=== PATIENT | male | born 1975 | race Caucasian/White ===

== ENCOUNTER 2020-03-07 17:48 | Emergency (ER) | payer SELFPAY ==
[~2020-03-07] VITALS: Ht 175.3 cm; Wt 104.5 kg
[2020-03-07 18:53] VITALS: BP 209/94
[2020-03-07] MEDS ORDERED: CIPR500T94 PO (19:26)
[2020-03-07] MEDS ORDERED: NEOM10SO7 AD (19:26)
--- NOTE | 2020-03-07 19:29 | PHYS DOC ---
Past Medical History Past Medical History: No Pertinent History Past Surgical History: No Surgical History Smoking Status: Current Every Day Smoker Alcohol Use: Occasionally General Adult EDM: Chief Complaint: EARACHE/EAR PAIN HPI: HPI: Patient is a 44 year old male, accompanied by his significant other, who presents to the emergency department with complaints of right ear pain for the last week that has increased over the last 2 days. Patient reports the pain started after he had been [place]. He denies any decreased hearing, ringing in the ear, dizziness, headache, or fever. He denies any recent cough, shortness of breath, congestion, nausea, vomiting, diarrhea, or abdominal pain. He denies any recent ill contacts. Patient currently rates the pain a 7 out of 10 on the pain scale, he denies any alleviating or exacerbating factors, he denies any radiation of the pain. Patient reports a history of high blood pressure when he was in nursing home but states he has not taken blood pressure medication for quite some time and he does not have a primary care doctor. Review of Systems: Review of Systems: Constitutional: Denies fever or chills. [] Eyes: Denies change in visual acuity. [] HENT: Denies nasal congestion or sore throat; see HPI. [] Respiratory: Denies cough or shortness of breath. [] Cardiovascular: Denies chest pain or palpitations GI: Denies abdominal pain, nausea, vomiting, or diarrhea. [] Musculoskeletal: Denies back pain or joint pain. [] Integument: Denies rash. [] Neurologic: Denies headache, focal weakness or sensory changes. [] Psychiatric: Denies depression or anxiety. [] Heart Score: Risk Factors: Risk Factors: DM, Current or recent (<one month) smoker, HTN, HLP, family history of CAD, obesity. Risk Scores: Score 0 - 3: 2.5% MACE over next 6 weeks - Discharge Home Score 4 - 6: 20.3% MACE over next 6 weeks - Admit for Clinical Observation Score 7 - 10: 72.7% MACE over next 6 weeks - Early Invasive Strategies Allergies: Allergies: Allergies Coded Allergies Type Severity Reaction Last Updated Verified No Known Drug Allergies 03/07/20 No Physical Exam: PE: Constitutional: Well developed, well nourished, no acute distress, non-toxic appearance, obese. [] HENT: Normocephalic, atraumatic, nose normal, left external ear normal, posterior pharynx normal; left TM normal, right TM appears to be bulging with purulent fluid no drainage, there is edema and erythema of the external canal and the pinna consistent with otitis externa, no visible abscess, drainage, or bleeding. Eyes: PERRLA, EOMI, conjunctiva normal, no discharge. [] Neck: Normal range of motion, no stridor. [] Cardiovascular:Heart rate regular rhythm Lungs & Thorax: Respirations even and unlabored, no retractions, no respiratory distress Skin: Warm, dry Extremities: No cyanosis, ROM intact, no edema. [] Neurologic: Alert and oriented X 3, no focal deficits noted. [] Psychologic: Affect normal, judgement normal, mood normal. [] Current Patient Data: Vital Signs: Vital Signs Date Time Temp Pulse Resp B/P (MAP) Pulse Ox O2 Delivery O2 Flow Rate FiO2 03/07/20 18:53 88 209/94 (132) 03/07/20 18:11 98.0 20 98 Room Air 98.0 EKG: EKG: [] Radiology/Procedures: Radiology/Procedures: [] Course & Med Decision Making: Course & Med Decision Making Pertinent Labs and Imaging studies reviewed. (See chart for details) 44-year-old male presented to the emergency department with complaints of right ear pain for a week that was worse over 2 days. Physical exam is concerning for suppurative otitis media and otitis externa of the right ear. Prescriptions written for Cortisporin eardrops and ciprofloxacin. Patient was advised to not participate in contact sports or strenuous activities while steffany ing the ciprofloxacin due to risk of tendon rupture. Advised patient he can take Tylenol or ibuprofen as needed for pain. Recommend follow-up with primary care doctor in 1 to 2 days. While patient was in the emergency department he was noted to be very hypertensive patient reported a history of hypertension but stated he is not taking medication for a long time and does not have a primary care doctor. I provided the patient with a list of primary care doctors locally and recommended that he follow-up as soon as possible for treatment and management of his hypertension. Patient verbalized an understanding of home care, medications, follow-up, and return to ED instructions and was in agreement with the plan of care. [] Dragon Disclaimer: Dragon Disclaimer: This electronic medical record was generated, in whole or in part, using a voice recognition dictation system. Departure Departure Impression: Primary Impression: Otitis externa of right ear Qualified Codes: H60.311 - Diffuse otitis externa, right ear Additional Impressions: Otitis media of right ear Qualified Codes: H66.001 - Acute suppurative otitis media without spontaneous rupture of ear drum, right ear Hypertension Qualified Codes: I10 - Essential (primary) hypertension Disposition: HOME, SELF-CARE Condition: STABLE Referrals: NO PCP (PCP) Patient Instructions: Hypertension, [id number], Otitis Externa, [id number] Additional Instructions: Fill prescriptions and use as directed. Do not participate in contact sports or strenuous activities while taking ciprofloxacin, there is an increased risk of tendon rupture with this medication. Follow up with your primary care doctor in 1-2 days to have your ear rechecked and for management of your blood pressure. Tylenol or ibuprofen as needed for pain. Return to the ER if symptoms worsen. Scripts Ciprofloxacin Hcl (CIPRO) 500 Mg Tablet 1 TAB PO BID for 7 Days, #14 TAB 0 Refills Prov: ERROL RUBALCAVA APRN 03/07/20 Neomycin/Polymyxin B Sulf/Hc ([id number]-[id number]-SA EAR SOLN) 10 Ml Solution 4 DROP AD QID, #10 ML 0 Refills Prov: ERROL RUBALCAVA APRN 03/07/20 Justicifation of Admission Dx: Justifications for Admission: Justification of Admission Dx: N/A ERROL RUBALCAVA APRN Mar 07, 2020 19:29
== END 2020-03-07 19:36 | disposition home or self-care (01) ==
LOC: ER 17:48
DX: H66.001 Acute suppurative otitis media without spontaneous rupture of ear drum, right ear (principal); I10 Essential (primary) hypertension; F17.200 Nicotine dependence, unspecified, uncomplicated
CPT/HCPCS: 99283

== ENCOUNTER 2021-05-04 16:27 | Inpatient (IN) | payer SELFPAY ==
[~2021-05-04] VITALS: Ht 177.8 cm; Wt 121.8 kg
[~2021-05-04 16:27] MED LIST: CIPR500T94 PO; NEOM10SO7 AD
[2021-05-04 18:33] LABS: BASO # 0.1 x10^3/uL (0.0-0.2); BASO % 1 % (0-3); EOS # 0.1 x10^3/uL (0.0-0.7); EOS % 0 % (0-3); HEMATOCRIT 39.5 % (39.0-53.0); LYMPH % 6 % (24-48); MEAN CORPUSCULAR VOLUME 79 fL (79-100); MONO # 1.1 x10^3/uL (0.0-1.1); MONO % 6 % (0-9); NEUT # 15.2 x10^3/uL (1.8-7.7); NEUT % 87 % (31-73); PLATELET COUNT 213 x10^3/uL (140-400); RED BLOOD COUNT 5.02 x10^6/uL (4.30-5.70); RED CELL DISTRIBUTION WIDTH 15.7 % (11.5-14.5); WHITE BLOOD COUNT 17.4 x10^3/uL (4.0-11.0)
[2021-05-04 18:34] LABS: BILIRUBIN,URINE NEGATIVE (NEG); CLARITY,URINE CLEAR; COLOR,URINE YELLOW; NITRITE,URINE NEGATIVE (NEG); PROTEIN,URINE 100 mg/dL (NEG-TRACE); UROBILINOGEN,URINE 0.2 mg/dL (0.2 mg/dL)
[2021-05-04 18:40] LABS: BARBITURATES NEG (NEG); BENZODIAZEPINES NEG (NEG); CANNABINOIDS NEG (NEG); COCAINE NEG (NEG); METHADONE NEG (NEG); OPIATES NEG (NEG); PHENCYCLIDINE NEG (NEG)
[2021-05-04 18:41] LABS: BACTERIA,URINE FEW /HPF (0-FEW)
[2021-05-04 18:50] LABS: AMPHETAMINE/METHAMPHETAMINE NEG (NEG)
[2021-05-04 19:03] LABS: MEAN CORPUSCULAR HGB CONC 35 g/dL (31-37)
[2021-05-04 19:04] LABS: MEAN CORPUSCULAR HEMOGLOBIN 27 pg (25-35)
--- NOTE | 2021-05-04 19:04 | RAD ---
CT HEAD/BRAIN WO Date: 05/04/2021 6:29 PM Clinical Indication: Reason: dizziness / Spl. Instructions: / History: Comparison: None. Technique: 5 mm axial tomographic images were obtained of the head without contrast. These were view ed on brain and bone windows. One or more of the following dose reduction techniques were utilized: A utomated exposure control (AEC), Adjustment of mA and/or kV according to patient size, Use of iterati ve reconstruction technique such as ASiR, CT scan done according to ALARA and image gently/image carter ly Findings: The brain parenchyma is normal in attenuation. No intra- or extra-axial mass or fluid collection. No acute hemorrhage. The ventricles are normal in size, shape, and morphology. The jeffery-white matter moose ction is normal. The subarachnoid cisterns are patent. Mild paranasal sinus mucosal thickening. The visualized portions of the orbits and globes are normal . The mastoid air cells are clear. The fire fighter topogram shows no lytic lesion or fracture. Impression: No acute intracranial process. Electronically signed by: Ever Talbot MD (05/04/2021 7:02 PM) [facility]
[2021-05-04 19:06] LABS: HEMOGLOBIN 13.6 g/dL (13.0-17.5)
[2021-05-04] MEDS ORDERED: fentaNYL PF VIAL 100 MCG/2 ML VIAL IVP ONE ×3 (19:30→22:00)
[2021-05-04] MEDS ORDERED: hydrALAZINE 20 MG/ML VIAL. IVP ONE (19:30)
[2021-05-04] MEDS ORDERED: ONDANSETRON PF 4 MG/2 ML VIAL. IVP ONE (19:30)
--- NOTE | 2021-05-04 19:31 | PHYS DOC ---
Past Medical History Past Medical History: No Pertinent History Additional Past Medical Histor: patient states he has no PCP and doesn't know what his health problems are (FLORIN,HIRA [address]) Past Surgical History: No Surgical History (HIRA CATHERINE [address]) Smoking Status: Never Smoker Alcohol Use: Occasionally (HIRA CATHERINE [address]) General Adult EDM: Chief Complaint: DIZZY/LIGHT HEADED HPI: HPI: Patient is a 45 year old male who presents with 24 hours of excessive thirst, soa, dizziness, epigastric pain and has drank 3 gallons of water per the the patient. Rates his pain a 7/10 and sharp. He states he is having nausea. Denies having a PCP and states he does not know his past medical history because he does not go to the doctor. He is tachycardic, tachypneic. (HIRA CATHERINE [address]) Review of Systems: Review of Systems: Constitutional: Denies fever or chills. [] Eyes: Denies change in visual acuity. [] HENT: Denies nasal congestion or sore throat. [] Respiratory: Denies cough or +shortness of breath. [] Cardiovascular: Denies chest pain or edema. [] GI: + abdominal pain, +nausea, denies vomiting, bloody stools or diarrhea. [] : Denies dysuria. + Excessive thirst [] Musculoskeletal: Denies back pain or joint pain. [] Integument: Denies rash. [] Neurologic: Denies headache, focal weakness or sensory changes. + Dizziness [] Endocrine: Denies polyuria or polydipsia. [] Lymphatic: Denies swollen glands. [] Psychiatric: Denies depression or anxiety. [] (HIRA CATHERINE M [address]) Heart Score: C/O Chest Pain: No [facility] Allergies: Allergies: Allergies Coded Allergies Type Severity Reaction Last Updated Verified No Known Drug Allergies 03/07/20 No (HIRA CATHERINE [address]) Physical Exam: PE: Constitutional: Well developed, well nourished, no acute distress, non-toxic appearance. [] HENT: Normocephalic, atraumatic, bilateral external ears normal, oropharynx moist, no oral exudates, nose normal. [] Eyes: PERRLA, EOMI, conjunctiva normal, no discharge. [] Neck: Normal range of motion, no tenderness, supple, no stridor. [] Cardiovascular:Heart rate regular tachycardia rhythm, no murmur [] Lungs & Thorax: Bilateral breath sounds clear to auscultation [] Abdomen: Bowel sounds normal, soft, epigastric tenderness, no masses, no pulsatile masses. [] Skin: Warm, dry, no erythema, no rash. [] Back: No tenderness, no CVA tenderness. [] Extremities: No tenderness, no cyanosis, no clubbing, ROM intact, no edema. [] Neurologic: Alert and oriented X 3, normal motor function, normal sensory function, no focal deficits noted. [] Psychologic: Affect normal, judgement normal, mood normal. [] (HIRA CATHERINE APRN) Current Patient Data: Labs: Laboratory Tests Test 05/04/21 18:04 05/04/21 18:14 Urine Collection Type Unknown Urine Color Yellow Urine Clarity Clear Urine pH 6.0 (<5.0-8.0) Urine Specific [place] >=1.030 (1.000-1.030) Urine Protein 100 mg/dL (NEG-TRACE) Urine Glucose (UA) >=1000 mg/dL (NEG) Urine Ketones (Stick) Negative mg/dL (NEG) Urine Blood Trace (NEG) Urine Nitrite Negative (NEG) Urine Bilirubin Negative (NEG) Urine Urobilinogen Dipstick 0.2 mg/dL (0.2 mg/dL) Urine Leukocyte Esterase Negative (NEG) Urine RBC 3-5 /HPF (0-2) Urine WBC 1-4 /HPF (0-4) Urine Squamous Epithelial Cells Occ /LPF Urine Bacteria Few /HPF (0-FEW) Urine Opiates Screen Neg (NEG) Urine Methadone Screen Neg (NEG) Urine Barbiturates Neg (NEG) Urine Phencyclidine Screen Neg (NEG) Urine Amphetamine/Methamphetamine Neg (NEG) Urine Benzodiazepines Screen Neg (NEG) Urine Cocaine Screen Neg (NEG) Urine Cannabinoids Screen Neg (NEG) Urine Ethyl Alcohol Neg (NEG) White Blood Count 17.4 x10^3/uL (4.0-11.0) H Red Blood Count 5.02 x10^6/uL (4.30-5.70) Hemoglobin 13.6 g/dL (13.0-17.5) Hematocrit 39.5 % (39.0-53.0) Mean Corpuscular Volume 79 fL (79-100) Mean Corpuscular Hemoglobin 27 pg (25-35) Mean Corpuscular Hemoglobin Concent 35 g/dL (31-37) Red Cell Distribution Width 15.7 % (11.5-14.5) H Platelet Count 213 x10^3/uL (140-400) Neutrophils (%) (Auto) 87 % (31-73) H Lymphocytes (%) (Auto) 6 % (24-48) L Monocytes (%) (Auto) 6 % (0-9) Eosinophils (%) (Auto) 0 % (0-3) Basophils (%) (Auto) 1 % (0-3) Neutrophils # (Auto) 15.2 x10^3/uL (1.8-7.7) H Lymphocytes # (Auto) 1.0 x10^3/uL (1.0-4.8) Monocytes # (Auto) 1.1 x10^3/uL (0.0-1.1) Eosinophils # (Auto) 0.1 x10^3/uL (0.0-0.7) Basophils # (Auto) 0.1 x10^3/uL (0.0-0.2) Troponin I Quantitative 0.042 ng/mL (0.000-0.055) CS-Tun-L-Type Natriuretic Peptide 391 pg/mL (0-124) H Lipase 786 U/L (73-393) H Laboratory Tests 05/04/21 18:14 Vital Signs: Vital Signs Date Time Temp Pulse Resp B/P (MAP) Pulse Ox O2 Delivery O2 Flow Rate FiO2 05/04/21 17:50 118 26 234/113 (153) 94 Room Air 05/04/21 17:42 98.8 98.8 (HIRA CATHERINE APRN) EKG: EK and read by Dr. Ryder as sinus tachycardia and no STEMI (HIRA CATHERINE APRN) Radiology/Procedures: Radiology/Procedures: [] Impression: [facility] [address] [place], [place] [id number] IMAGING REPORT Signed PATIENT: GREG DUNALP ACCOUNT: [id number] : 1975 LOCATION: ER AGE: 45 SEX: M EXAM STATUS: REG ER ORD. PHYSICIAN: HIRA CATHERINE APRN REASON: dizziness PROCEDURE: CT HEAD WO CONTRAST CT HEAD/BRAIN WO Date: 05/04/2021 6:29 PM Clinical Indication: Reason: dizziness / Spl. Instructions: / History: Comparison: None. Technique: 5 mm axial tomographic images were obtained of the head without contrast. These were viewed on brain and bone windows. One or more of the following dose reduction techniques were utilized: Automated exposure control (AEC), Adjustment of mA and/or kV according to patient size, Use of iterative reconstruction technique such as ASiR, CT scan done according to ALARA and image gently/image wisely Findings: The brain parenchyma is normal in attenuation. No intra- or extra-axial mass or fluid collection. No acute hemorrhage. The ventricles are normal in size, shape, and morphology. The jeffery-white matter junction is normal. The subarachnoid cisterns are patent. Mild paranasal sinus mucosal thickening. The visualized portions of the orbits and globes are normal. The mastoid air cells are clear. The shift engineer topogram shows no lytic lesion or fracture. Impression: No acute intracranial process. Electronically signed by: Neha Cisneros MD (05/04/2021 7:02 PM) [facility] DICTATED and SIGNED BY: NEHA CISNEROS MD DATE: 05/04/21 [id number] [facility] [address] [place] [address] IMAGING REPORT Signed PATIENT: GREG DUNLAP ACCOUNT: [id number] : 1975 LOCATION: ER AGE: 45 SEX: M EXAM STATUS: REG ER ORD. PHYSICIAN: HIRA CATHERINE APRN REASON: dizziness PROCEDURE: PORTABLE CHEST 1V XR CHEST 1V INDICATION: dizziness / Spl. Instructions: / History: . COMPARISON STUDY: None. FINDINGS: Lungs: Normal lung volume. No pulmonary mass or consolidation. The tracheobronchial tree and hilar structures are normal. Pleura: No pleural effusion or pneumothorax. Heart and Mediastinum: The cardiomediastinal silhouette is normal. The great vessels of the thorax are normal. IMPRESSION: No acute cardiopulmonary process. Electronically signed by: Neha Cisneros MD (05/04/2021 7:55 PM) [facility] DICTATED and SIGNED BY: NEHA CISNEROS MD DATE: 05/04/21 [id number] [facility] [address] [place] [address] IMAGING REPORT Signed PATIENT: GREG DUNLAP ACCOUNT: [id number] : 1975 LOCATION: ER AGE: 45 SEX: M EXAM STATUS: REG ER ORD. PHYSICIAN: HIRA CATHERINE APRN REASON: SOA, TACHYCARDIC PROCEDURE: CT ANGIO CHEST W ABD PEL W/ CT angiography chest with contrast. CT abdomen and pelvis with contrast PQRS statement: CT scans at this facility use dose reduction including either au tomated exposure control, iterative reconstructions, and /or weight based radiation dosing via mA and kV modification when appropriate to reduce radiation dose to as low as reasonably achievable. Contrast: 100 mL Omnipaque 350 intravenous contrast with 3-D MIP reconstructions of the arteries acquired. HISTORY: Shortness of breath, epigastric abdominal pain, tachycardia. Chest findings: No thoracic aortic aneurysm or dissection. Ascending aorta diameter 2.9 cm. Heart size normal. Esophagus unremarkable. No pulmonary artery emboli. Left ventricular myocardium is subjectively prominent in size the lateral wall proximal segment thickness is 2.5 cm at the mid segment and the septal wall thickness is approximately 2.5 cm at the mid segment may indicate hypertrophic are mildly. No adenopathy in the chest with subcentimeter mediastinal and hilar lymph nodes. There are calcified granulomas within the chest.Trachea and bronchi are unremarkable. No pulmonary opacities. No pleural effusions. Bones are unremarkable. 4 mm left upper lobe solid nodule image 52. Abdomen findings: There is diffuse hypodensity of the liver typical steatosis, there is a geographic nonmasslike area hyperdensity of the left hepatic lobe adjacent of the glenroy hepatis typical of fatty sparing. There is a smaller area of fatty sparing gallbladder fossa. Edema of the pancreas as well as mild peripancreatic edema consistent with acute pancreatitis. No pseudocyst evident. Patent contrast enhancement of the portal vein and splenic vein and mesenteric veins. Kidneys, adrenals, spleen and gallbladder are unremarkable. Appendix is negative. No obstruction or inflammatory changes in GI tract. No abdominal fluid or adenopathy. Lower lumbar disc disease. Pelvis findings: Bladder, prostate, rectum and bones are unremarkable. IMPRESSION: 1. Acute pancreatitis. 2. No acute process in the chest. No pulmonary artery emboli. No thoracic aortic aneurysm or dissection. 3. Hypodense liver likely due to steatosis with areas of fatty sparing as described above. 4. Appendix is negative. 5. Possible left ventricular myocardial hypertrophy raising the possibility of hypertrophic cardiomyopathy or muscular hypertrophy from long-standing hypertension. This could be further assessed with echocardiography. 6. 4 mm left upper lobe solid pulmonary nodule. Per Fleischner guidelines if the patient has risk factors for malignancy optional CT follow-up in 12 months could be considered, otherwise no follow-up is necessary. Electronically signed by: Wilber Smiley MD (05/04/2021 9:21 PM) [facility] [place] DICTATED and SIGNED BY: WILBER SMILEY MD DATE: 05/04/21 [id number] (HIRA CATHERINE APRN) Course & Med Decision Making: Course & Med Decision Making Pertinent Labs and Imaging studies reviewed. (See chart for details) COVID-19 CRITERIA: The patient was evaluated during the global COVID-19 pandemic, and that diagnosis was suspected/considered upon their initial presentation. Their evaluation, treatment and testing was consistent with current guidelines for patients who present with complaints or symptoms that may be related to COVID-19. See HPI. Alert and oriented x4. Ambulatory steady gait. Speaks in full clear sentences. Skin pink warm and dry. No extremity edema. Epigastric tenderness with palpation. Abdomen otherwise soft. Patient is tachycardic. He is also hypertensive. Patient is given hydralazine in the ED. He is given IV fluids. Insulin drip was started. Admitted to the hospitalist. [] (HIRA CATHERINE APRN) Course & Med Decision Making Care and Treatment plan independently provided by MEDICAL RECORD CONSULTANT. I was available for consult. Patients chart reviewed. (GREG RYDER DO) Sunil Disclaimer: Sunil Disclaimer: This electronic medical record was generated, in whole or in part, using a voice recognition dictation system. (HIRA CATHERINE APRN) COVID-19 Patient Risks: Age 65 or older: No Sign of co-morbidity: Yes Exp to person + for COVID: No Exp to PUI: No Travel from affected area: No Lower respiratory symptoms: Yes Fever: No Other: Yes (TACHYCARDIA, NAUSEA) (HIRA CATHERINE APRN) PPE Use: Full PPE with N95 mask or PAPR: Yes (HIRA CATHERINE APRN) Departure Departure Impression: Primary Impression: Hyperglycemia Additional Impressions: Pancreatitis Qualified Codes: K85.90 - Acute pancreatitis without necrosis or infection, unspecified Hypertension Qualified Codes: I10 - Essential (primary) hypertension Disposition: ADMITTED INPATIENT Admitting Physician: DARREL (HIRA CATHERINE APRN) Condition: STABLE Referrals: NO PCP (PCP) Scripts Hum Insulin Nph/Reg Insulin Hm (HUMULIN 70-30 VIAL) 100 Unit/1 Ml Vial 20 UNIT SQ BID for diabetes for 30 Days, #3 EACH Prov: GINO SANDERS MD 05/06/21 Losartan Potassium (COZAAR ) 50 Mg Tablet 50 MG PO DAILY for hypertension with diabetes for 30 Days, #30 TAB Prov: GINO SANDERS MD 05/06/21 Fenofibrate,Micronized (FENOFIBRATE) 134 Mg Capsule 160 MG PO DAILY for daily for 30 Days, #30 CAP Prov: GINO SANDERS MD 05/06/21 HIRA CATHERINE APRN May 04, 2021 19:31 GREG RYDER DO May 07, 2021 18:22
--- NOTE | 2021-05-04 19:58 | RAD ---
XR CHEST 1V INDICATION: dizziness / Spl. Instructions: / History: . COMPARISON STUDY: None. FINDINGS: Lungs: Normal lung volume. No pulmonary mass or consolidation. The tracheobronchial tree and hilar st ructures are normal. Pleura: No pleural effusion or pneumothorax. Heart and Mediastinum: The cardiomediastinal silhouette is normal. The great vessels of the thorax ar e normal. IMPRESSION: No acute cardiopulmonary process. Electronically signed by: Ever Talbot MD (05/04/2021 7:55 PM) [facility]
[2021-05-04 20:08] LABS: ALBUMIN 3.1 g/dL (3.4-5.0); ALBUMIN/GLOBULIN RATIO 0.8 (1.0-1.7); CALCIUM 9.5 mg/dL (8.5-10.1); CREATININE 1.2 mg/dL (0.7-1.3); GFR 65.8; MAGNESIUM 2.1 mg/dL (1.8-2.4); POTASSIUM 4.7 mmol/L (3.5-5.1); TOTAL BILIRUBIN 0.4 mg/dL (0.2-1.0); TOTAL PROTEIN 7.1 g/dL (6.4-8.2)
[2021-05-04] MEDS ORDERED: IOHEXOL 350 MG/ML 100 ML VIAL. IV ONE (20:15)
[2021-05-04] MEDS ORDERED: INSULIN REGULAR VIAL 100 UNIT in IV NORMAL SALINE 100ML 100 ML IV PRN (20:30)
[2021-05-04] MEDS ORDERED: CONTRAST GIVEN. MC PRN (20:30)
[2021-05-04] MEDS ORDERED: IV NORMAL SALINE 1000ML BAG 1,000 ML IV SCH (20:30)
[2021-05-04] MEDS ORDERED: ONDANSETRON PF 4 MG/2 ML VIAL. IVP PRN (20:30)
[2021-05-04] MEDS ORDERED: POTASSIUM CHLORIDE 10MEQ 100 ML IV PRN ×3 (20:30)
--- NOTE | 2021-05-04 21:23 | RAD ---
CT angiography chest with contrast. CT abdomen and pelvis with contrast PQRS statement: CT scans at this facility use dose reduction including either automated exposure cont rol, iterative reconstructions, and /or weight based radiation dosing via mA and kV modification when appropriate to reduce radiation dose to as low as reasonably achievable. Contrast: 100 mL Omnipaque 350 intravenous contrast with 3-D MIP reconstructions of the arteries acqu ired. HISTORY: Shortness of breath, epigastric abdominal pain, tachycardia. Chest findings: No thoracic aortic aneurysm or dissection. Ascending aorta diameter 2.9 cm. Heart siz e normal. Esophagus unremarkable. No pulmonary artery emboli. Left ventricular myocardium is subjecti vely prominent in size the lateral wall proximal segment thickness is 2.5 cm at the mid segment and t he septal wall thickness is approximately 2.5 cm at the mid segment may indicate hypertrophic are mil dly. No adenopathy in the chest with subcentimeter mediastinal and hilar lymph nodes. There are calci fied granulomas within the chest.Trachea and bronchi are unremarkable. No pulmonary opacities. No ple ural effusions. Bones are unremarkable. 4 mm left upper lobe solid nodule image 52. Abdomen findings: There is diffuse hypodensity of the liver typical steatosis, there is a geographic nonmasslike area hyperdensity of the left hepatic lobe adjacent of the glenroy hepatis typical of fatty sparing. There is a smaller area of fatty sparing gallbladder fossa. Edema of the pancreas as well a s mild peripancreatic edema consistent with acute pancreatitis. No pseudocyst evident. Patent contras t enhancement of the portal vein and splenic vein and mesenteric veins. Kidneys, adrenals, spleen and gallbladder are unremarkable. Appendix is negative. No obstruction or inflammatory changes in GI tra ct. No abdominal fluid or adenopathy. Lower lumbar disc disease. Pelvis findings: Bladder, prostate, rectum and bones are unremarkable. IMPRESSION: 1. Acute pancreatitis. 2. No acute process in the chest. No pulmonary artery emboli. No thoracic aortic aneurysm or dissecti on. 3. Hypodense liver likely due to steatosis with areas of fatty sparing as described above. 4. Appendix is negative. 5. Possible left ventricular myocardial hypertrophy raising the possibility of hypertrophic cardiomyo catrina or muscular hypertrophy from long-standing hypertension. This could be further assessed with ec hocardiography. 6. 4 mm left upper lobe solid pulmonary nodule. Per Fleischner guidelines if the patient has risk fac tors for malignancy optional CT follow-up in 12 months could be considered, otherwise no follow-up is necessary. Electronically signed by: Jaspreet Edge MD (05/04/2021 9:21 PM) [facility]
[2021-05-04] MEDS: IV NORMAL SALINE 1000ML BAG 1,000 ML IV SCH (21:38)
[2021-05-04] MEDS ORDERED: LABETALOL 20 MG/4 ML DISP.SYRIN. IVP ONE (22:00)
[2021-05-04 23:13] LABS: BASE EXCESS ABG -1 mmol/L (-3-3); FIO2 ABG 2LNC; HCO3 ABG 22 mmol/L (21-28); PCO2 ABG 31 mmHg (35-46); PO2 ABG 74 mmHg (75-108); SAT O2 ABG 94 % (92-99)
[2021-05-04 23:40] VITALS: BP 174/94
[2021-05-05 03:00] VITALS: BP 171/110
[2021-05-05] MEDS: IV NORMAL SALINE 1000ML BAG 1,000 ML IV SCH ×3 (03:10→16:30)
--- NOTE | 2021-05-05 06:10 | EKG ---
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
[2021-05-05 07:00] VITALS: BP 165/91
[2021-05-05 08:38] LABS: CREATININE 0.9 mg/dL (0.7-1.3); GFR 91.7
[2021-05-05 08:45] LABS: CALCIUM 8.2 mg/dL (8.5-10.1)
[2021-05-05] MEDS ORDERED: DEXTROSE 50% 25 GM / 50ML DISP.SYRIN. IV PRN (09:45)
[2021-05-05] MEDS ORDERED: POTASSIUM CHLORIDE 20 MEQ TABLET.ER. PO ONE (09:45)
[2021-05-05 11:00] VITALS: BP 145/88
--- NOTE | 2021-05-05 11:07 | PDOC ---
GENERAL General: History and physical [id number] VITAL SIGNS Vital Signs/I&O: Vital Signs Date Time Temp Pulse Resp B/P (MAP) Pulse Ox O2 Delivery O2 Flow Rate FiO2 05/05/21 07:00 98.0 101 18 165/91 (115) 94 Room Air 98.0 I & O 05/04/21 05/04/21 05/05/21 15:00 23:00 07:00 Intake Total 223 ml 240 ml Output Total 650 ml Balance 223 ml -410 ml ALLERGIES Allergies: Allergies Coded Allergies Type Severity Reaction Last Updated Verified No Known Drug Allergies 03/07/20 No MEDS Medications: Current Medications Medications (Trade) Dose Ordered Sig/Aissatou Route PRN Reason Start Time Stop Time Status Last Admin Dose Admin Hydralazine HCl (Apresoline Inj) 10 mg 1X ONCE IVP 05/04/21 19:30 05/04/21 19:31 DC 05/04/21 19:55 Ondansetron HCl (Zofran) 4 mg 1X ONCE IVP 05/04/21 19:30 05/04/21 19:32 DC 05/04/21 19:52 Fentanyl Citrate (Fentanyl 2ml Vial) 50 mcg 1X ONCE IVP 05/04/21 19:30 05/04/21 19:32 DC 05/04/21 19:54 Sodium Chloride 1,000 ml @ 1,000 mls/hr Q1H IV 05/04/21 20:30 05/04/21 21:29 DC 05/04/21 21:37 Insulin Human Regular 100 unit/ Sodium Chloride 101 ml @ 0 mls/hr CONT PRN PRN IV PER PROTOCOL 05/04/21 20:30 05/05/21 09:34 DC 05/04/21 21:46 Potassium Chloride/Water 100 ml @ 100 mls/hr PRN Q1HR PRN IV SEE COMMENTS 05/04/21 20:30 05/04/21 22:36 Sodium Chloride 1,000 ml @ 150 mls/hr Q6H40M IV 05/04/21 20:30 05/05/21 20:29 05/05/21 03:10 Labetalol HCl (Normodyne Iv Push) 20 mg 1X ONCE IVP 05/04/21 22:00 05/04/21 22:02 DC 05/04/21 22:31 LAB Lab: Laboratory Tests Test 05/04/21 18:04 05/04/21 18:14 05/04/21 18:44 05/04/21 19:38 Urine Collection Type Unknown Urine Color Yellow Urine Clarity Clear Urine pH 6.0 (<5.0-8.0) Urine Specific Elim >=1.030 (1.000-1.030) Urine Protein 100 mg/dL (NEG-TRACE) Urine Glucose (UA) >=1000 mg/dL (NEG) Urine Ketones (Stick) Negative mg/dL (NEG) Urine Blood Trace (NEG) Urine Nitrite Negative (NEG) Urine Bilirubin Negative (NEG) Urine Urobilinogen Dipstick 0.2 mg/dL (0.2 mg/dL) Urine Leukocyte Esterase Negative (NEG) Urine RBC 3-5 /HPF (0-2) Urine WBC 1-4 /HPF (0-4) Urine Squamous Epithelial Cells Occ /LPF Urine Bacteria Few /HPF (0-FEW) Urine Opiates Screen Neg (NEG) Urine Methadone Screen Neg (NEG) Urine Barbiturates Neg (NEG) Urine Phencyclidine Screen Neg (NEG) Urine Amphetamine/Methamphetamine Neg (NEG) Urine Benzodiazepines Screen Neg (NEG) Urine Cocaine Screen Neg (NEG) Urine Cannabinoids Screen Neg (NEG) Urine Ethyl Alcohol Neg (NEG) White Blood Count 17.4 x10^3/uL (4.0-11.0) H Red Blood Count 5.02 x10^6/uL (4.30-5.70) Hemoglobin 13.6 g/dL (13.0-17.5) Hematocrit 39.5 % (39.0-53.0) Mean Corpuscular Volume 79 fL (79-100) Mean Corpuscular Hemoglobin 27 pg (25-35) Mean Corpuscular Hemoglobin Concent 35 g/dL (31-37) Red Cell Distribution Width 15.7 % (11.5-14.5) H Platelet Count 213 x10^3/uL (140-400) Neutrophils (%) (Auto) 87 % (31-73) H Lymphocytes (%) (Auto) 6 % (24-48) L Monocytes (%) (Auto) 6 % (0-9) Eosinophils (%) (Auto) 0 % (0-3) Basophils (%) (Auto) 1 % (0-3) Neutrophils # (Auto) 15.2 x10^3/uL (1.8-7.7) H Lymphocytes # (Auto) 1.0 x10^3/uL (1.0-4.8) Monocytes # (Auto) 1.1 x10^3/uL (0.0-1.1) Eosinophils # (Auto) 0.1 x10^3/uL (0.0-0.7) Basophils # (Auto) 0.1 x10^3/uL (0.0-0.2) Sodium Level 124 mmol/L (136-145) L Potassium Level 4.7 mmol/L (3.5-5.1) Chloride Level 88 mmol/L (98-107) L Carbon Dioxide Level 22 mmol/L (21-32) Anion Gap 14 (6-14) Blood Urea Nitrogen 15 mg/dL (8-26) Creatinine 1.2 mg/dL (0.7-1.3) Estimated GFR (Cockcroft-Gault) 65.8 BUN/Creatinine Ratio 13 (6-20) Glucose Level 707 mg/dL (70-99) *H Calcium Level 9.5 mg/dL (8.5-10.1) Magnesium Level 2.1 mg/dL (1.8-2.4) Total Bilirubin 0.4 mg/dL (0.2-1.0) Aspartate Amino Transferase (AST) 23 U/L (15-37) Alanine Aminotransferase (ALT) 54 U/L (16-63) Alkaline Phosphatase 180 U/L (46-116) H Troponin I Quantitative 0.042 ng/mL (0.000-0.055) KJ-Fie-S-Type Natriuretic Peptide 391 pg/mL (0-124) H Total Protein 7.1 g/dL (6.4-8.2) Albumin 3.1 g/dL (3.4-5.0) L Albumin/Globulin Ratio 0.8 (1.0-1.7) L Lipase 786 U/L (73-393) H Ethyl Alcohol Level < 10 mg/dL (0-10) Acetone Level Neg (NEG) Phosphorus Level 4.4 mg/dL (2.6-4.7) SARS-CoV-2 RNA (CHRISTOPHER) Negative (Negative) SARS-CoV-2 Antigen (Rapid) Negative (NEGATIVE) Test 05/04/21 19:40 05/04/21 20:57 05/04/21 21:10 05/04/21 22:42 Lactic Acid Level 0.7 mmol/L (0.4-2.0) O2 Saturation 94 % (92-99) Arterial Blood pH 7.47 (7.35-7.45) H Arterial Blood pCO2 at Patient Temp 31 mmHg (35-46) L Arterial Blood pO2 at Patient Temp 74 mmHg (75-108) L Arterial Blood HCO3 22 mmol/L (21-28) Arterial Blood Base Excess -1 mmol/L (-3-3) FiO2 2lnc Glucose (Fingerstick) 435 mg/dL (70-99) H 363 mg/dL (70-99) H Test 05/04/21 23:53 05/05/21 00:46 05/05/21 01:55 05/05/21 04:01 Glucose (Fingerstick) 295 mg/dL (70-99) H 244 mg/dL (70-99) H 209 mg/dL (70-99) H 181 mg/dL (70-99) H Test 05/05/21 05:08 05/05/21 06:17 05/05/21 06:35 05/05/21 07:28 Glucose (Fingerstick) 178 mg/dL (70-99) H 178 mg/dL (70-99) H 160 mg/dL (70-99) H Sodium Level 136 mmol/L (136-145) # Potassium Level 3.0 mmol/L (3.5-5.1) #L Chloride Level 101 mmol/L (98-107) Carbon Dioxide Level 24 mmol/L (21-32) Anion Gap 11 (6-14) Blood Urea Nitrogen 11 mg/dL (8-26) Creatinine 0.9 mg/dL (0.7-1.3) Estimated GFR (Cockcroft-Gault) 91.7 Glucose Level 168 mg/dL (70-99) H Calcium Level 8.2 mg/dL (8.5-10.1) L Test 05/05/21 08:32 05/05/21 09:54 05/05/21 11:01 Glucose (Fingerstick) 176 mg/dL (70-99) H 194 mg/dL (70-99) H 144 mg/dL (70-99) H Laboratory Tests 05/04/21 18:14 Laboratory Tests 05/04/21 18:14 05/05/21 06:35 Justifications for Admission Other Justification GINO SANDERS MD May 05, 2021 11:07
[2021-05-05] MEDS ORDERED: cloNIDine HCL 0.1 MG TABLET PO PRN (11:15)
[2021-05-05] MEDS: LOSARTAN POTASSIUM 50 MG TABLET. PO SCH (11:26)
--- NOTE | 2021-05-05 11:35 | HP ---
ADMIT DATE: 05/04/2021 HISTORY OF PRESENT ILLNESS: This patient is a 45-year-old man who does not have a continuity source of primary care due to lack of medical insurance. 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 He is anticipating going back to work on 06/04. I am seeing him with his at bedside and both the patient and serve as adequate historians of this present illness. The patient tells me he has had a terrible time with the change in routine during the pandemic. He has gained almost 100 pounds in the last year and has been eating extremely poorly. He eats junk food all day long and is drinking lots of sugary beverages. His activity level has dropped off markedly. He does binge drink alcohol about every 1-2 weeks and will drink 2 or 3 liters of hard alcohol at a time. He has not had a binge alcohol episode in over 2 weeks. 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 He started noticing at that point that he was needing to drink lots and lots of beverages, but mostly was hydrating with Maco-Aid and soda. His symptoms escalated and 2 days ago, he developed severe epigastric and mid abdominal pain with lightheadedness and actually had a brief unwitnessed syncopal event. He was admitted last night with severe hyperglycemia and acute pancreatitis. He tells me he is feeling a little bit better this morning with intravenous hydration and pain control. He is extremely motivated to do well and get back to work. At this point, he is having more pain as his ER narcotic order has . He denies any fever, chills, cough, congestion, palpitations. He has had more loose stools. He has had significant polyuria over the last few weeks. All other systems reviewed and negative. PAST MEDICAL HISTORY: Fairly unremarkable. In fact, even when the patient had health insurance, he did not follow regularly with primary care given his overall good health. The patient has been fully vaccinated for coronavirus, finished his Pfizer vaccination in 12/2020. His is also vaccinated. Binge drinking for many years. MEDICATIONS: The patient takes no chronic medications. SOCIAL HISTORY: The patient is . He and his live independently in their own home. He is a [employer] worker, has been laid off for the last year due to the pandemic. He does not take any tobacco or illicit drugs. He has been binge drank the alcohol for many years, usually in a social setting: The patient is a full code. FAMILY HISTORY: Reviewed in full and noncontributory to the present illness. PHYSICAL EXAMINATION: VITAL SIGNS: Reviewed since admission and are notable for that the patient has had a T-max of 99.4, blood pressure has been elevated in the 150s to 170s/90s, heart rate is in the 90s-100s. He is breathing comfortably and saturating normally on room air. GENERAL: The patient is a pleasant 45-year-old man, alert and oriented x 3, in some pain from his pancreatitis, otherwise in no acute distress. HEENT: Unremarkable for acute abnormality. NECK: Soft and supple. No adenopathy or thyromegaly noted. CHEST: Clear to auscultation. HEART: S1, S2 normal, tachycardic. No murmurs or gallops are noted. ABDOMEN: Obese, soft, nondistended. He does have tenderness in his upper abdomen. No masses or organomegaly noted. EXTREMITIES: Unremarkable for acute abnormality. LABS AND OTHER STUDIES: Admission white count is 17.4, hemoglobin is 13.6, platelet count is 213. Chemistry panel is notable for admission sodium of 124, severe hyperglycemia with a sugar level of 707, bicarbonate of 222, alkaline phosphatase is 180. BNP is 390. This morning his morning sugar is 168, potassium is 3.0. Electrolytes otherwise unremarkable. Creatinine is 0.9. Urine tox screen is negative. Urinalysis is clear other than the glucosuria. COVID PCR is negative. CT chest, abdomen and pelvis notable for acute pancreatitis. There is note made of left ventricular myocardial hypertrophy, probably secondary to longstanding hypertension, nonurgent echo was recommended. Head CT is unremarkable. ASSESSMENT AND PLAN: A 45-year-old man with acute pancreatitis and severe hyperglycemia with a new diagnosis of diabetes, admitted for care. He has done well overnight on a regular insulin infusion per protocol along with aggressive intravenous hydration. He ate breakfast this morning and felt that he tolerated that well. He does need short-term pain control. I have added oral oxycodone to use sparingly as needed for severe pain. We will keep him on a diabetic diet. We have written to stop his insulin drip and start subcutaneous insulin. The patient and his will need education on self-injection and we will plan on 70/30 [employer] brand ReliOn insulin due to cost on discharge. We will consult social work for any help with glucometer or other supplies that we may be able to give the patient on discharge. I have reassured the patient that with good careful attention to his healthy diet, quitting his binge alcohol drinking, and managing his diabetes, he should be able to successfully get back to work as planned in 1 month. He will need to set up with primary care for close monitoring. Inpatient status is most appropriate as we anticipate a length of stay of 2-3 midnights while we work this through. We will reassess in the morning. TRISTA DR: Alton TID: [id number] CATIE
[2021-05-05] MEDS: INSULIN LISPRO 300 UNITS/3 ML VIAL. SQ SCH ×2 (12:00→17:00)
[2021-05-05 15:00] VITALS: BP 136/80
[2021-05-05] MEDS: oxyCODONE IR 5 MG TABLET PO PRN (18:04)
[2021-05-05 19:00] VITALS: BP 130/75
[2021-05-05] MEDS ORDERED: INSULIN GLARGINE SYRINGE. SQ SCH (21:00)
[2021-05-05 23:00] VITALS: BP 146/74
[2021-05-06 03:00] VITALS: BP 169/86
[2021-05-06 05:25] LABS: BASO # 0.1 x10^3/uL (0.0-0.2); BASO % 1 % (0-3); EOS # 0.4 x10^3/uL (0.0-0.7); EOS % 3 % (0-3); HEMATOCRIT 34.6 % (39.0-53.0); HEMOGLOBIN 11.8 g/dL (13.0-17.5); LYMPH # 1.1 x10^3/uL (1.0-4.8); LYMPH % 9 % (24-48); MEAN CORPUSCULAR HEMOGLOBIN 27 pg (25-35); MEAN CORPUSCULAR HGB CONC 34 g/dL (31-37); MEAN CORPUSCULAR VOLUME 79 fL (79-100); MONO # 0.7 x10^3/uL (0.0-1.1); MONO % 6 % (0-9); NEUT # 10.3 x10^3/uL (1.8-7.7); NEUT % 81 % (31-73); PLATELET COUNT 126 x10^3/uL (140-400); RED CELL DISTRIBUTION WIDTH 16.1 % (11.5-14.5); WHITE BLOOD COUNT 12.7 x10^3/uL (4.0-11.0)
[2021-05-06 05:52] LABS: CHOLESTEROL 220 mg/dL (0-200); HDLC 21 mg/dL (40-60); TRIGLYCERIDES 886 mg/dL (0-150)
[2021-05-06 05:57] LABS: CHOLESTEROL/HDL RATIO 10.5
[2021-05-06 06:21] LABS: ALBUMIN 2.1 g/dL (3.4-5.0); ALBUMIN/GLOBULIN RATIO 0.6 (1.0-1.7); CALCIUM 7.1 mg/dL (8.5-10.1); CREATININE 0.7 mg/dL (0.7-1.3); GFR 122.5; POTASSIUM 3.5 mmol/L (3.5-5.1); TOTAL BILIRUBIN 0.4 mg/dL (0.2-1.0); TOTAL PROTEIN 5.5 g/dL (6.4-8.2)
[2021-05-06 07:00] VITALS: BP 148/88
[2021-05-06] MEDS: LOSARTAN POTASSIUM 50 MG TABLET. PO SCH (08:22)
[2021-05-06] MEDS: INSULIN LISPRO 300 UNITS/3 ML VIAL. SQ SCH ×2 (08:30→12:35)
[2021-05-06] MEDS: oxyCODONE IR 5 MG TABLET PO PRN (08:32)
[2021-05-06 11:00] VITALS: BP 142/92
[2021-05-06] MEDS ORDERED: LOSA-73 PO (12:59)
[2021-05-06] MEDS ORDERED: FENO134C PO (12:59)
[2021-05-06] MEDS ORDERED: HUM100VI SQ (12:59)
[2021-05-06] MEDS ORDERED: FENOFIBRATE,MICRONIZED 134 MG CAPSULE PO SCH (13:00)
--- NOTE | 2021-05-06 13:02 | DISCH ---
DISCHARGE INSTRUCTIONS Condition on Discharge Condition on Discharge: Stable Activity After Discharge Activity Instructions for Disc: Resume previous activity Diet after Discharge Diet after Discharge: Low Fat, Diabetic No Calorie Level Contacting the DR. after DC Call your doctor for: If your condition worsens GINO SANDERS MD May 06, 2021 13:02
--- NOTE | 2021-05-06 13:36 | PDOC ---
GENERAL General: Discharge summary [id number] VITAL SIGNS Vital Signs/I&O: Vital Signs Date Time Temp Pulse Resp B/P (MAP) Pulse Ox O2 Delivery O2 Flow Rate FiO2 05/06/21 11:00 98.7 91 18 142/92 (109) 97 Room Air 98.7 I & O 05/05/21 05/05/21 05/06/21 15:00 23:00 07:00 Intake Total 1080 ml Output Total 425 ml 2025 ml Balance -425 ml -945 ml ALLERGIES Allergies: Allergies Coded Allergies Type Severity Reaction Last Updated Verified No Known Drug Allergies 03/07/20 No MEDS Medications: Current Medications Medications (Trade) Dose Ordered Sig/Aissatou Route PRN Reason Start Time Stop Time Status Last Admin Dose Admin Insulin Glargine (Lantus Syringe) 10 unit QHS SQ 05/05/21 21:00 05/06/21 12:37 DC 05/05/21 21:14 LAB Lab: Laboratory Tests Test 05/05/21 14:13 05/05/21 15:17 05/05/21 16:33 05/06/21 04:00 Glucose (Fingerstick) 198 mg/dL (70-99) H 191 mg/dL (70-99) H 109 mg/dL (70-99) H Sodium Level 134 mmol/L (136-145) L Potassium Level 3.5 mmol/L (3.5-5.1) Chloride Level 100 mmol/L (98-107) Carbon Dioxide Level 23 mmol/L (21-32) Anion Gap 11 (6-14) Blood Urea Nitrogen 8 mg/dL (8-26) Creatinine 0.7 mg/dL (0.7-1.3) Estimated GFR (Cockcroft-Gault) 122.5 BUN/Creatinine Ratio 11 (6-20) Glucose Level 206 mg/dL (70-99) H Calcium Level 7.1 mg/dL (8.5-10.1) L Total Bilirubin 0.4 mg/dL (0.2-1.0) Aspartate Amino Transferase (AST) 25 U/L (15-37) Alanine Aminotransferase (ALT) 44 U/L (16-63) Alkaline Phosphatase 122 U/L (46-116) H Total Protein 5.5 g/dL (6.4-8.2) L Albumin 2.1 g/dL (3.4-5.0) L Albumin/Globulin Ratio 0.6 (1.0-1.7) L Triglycerides Level 886 mg/dL (0-150) H Cholesterol Level 220 mg/dL (0-200) H LDL Cholesterol, Calculated mg/dL (0-100) VLDL Cholesterol, Calculated mg/dL (0-40) Non-HDL Cholesterol Calculated 199 mg/dL (0-129) H HDL Cholesterol 21 mg/dL (40-60) L Cholesterol/HDL Ratio 10.5 Thyroid Stimulating Hormone (TSH) 0.569 uIU/mL (0.358-3.74) Test 05/06/21 04:30 05/06/21 07:32 05/06/21 11:20 White Blood Count 12.7 x10^3/uL (4.0-11.0) H Red Blood Count 4.40 x10^6/uL (4.30-5.70) Hemoglobin 11.8 g/dL (13.0-17.5) L Hematocrit 34.6 % (39.0-53.0) L Mean Corpuscular Volume 79 fL (79-100) Mean Corpuscular Hemoglobin 27 pg (25-35) Mean Corpuscular Hemoglobin Concent 34 g/dL (31-37) Red Cell Distribution Width 16.1 % (11.5-14.5) H Platelet Count 126 x10^3/uL (140-400) L Neutrophils (%) (Auto) 81 % (31-73) H Lymphocytes (%) (Auto) 9 % (24-48) L Monocytes (%) (Auto) 6 % (0-9) Eosinophils (%) (Auto) 3 % (0-3) Basophils (%) (Auto) 1 % (0-3) Neutrophils # (Auto) 10.3 x10^3/uL (1.8-7.7) H Lymphocytes # (Auto) 1.1 x10^3/uL (1.0-4.8) Monocytes # (Auto) 0.7 x10^3/uL (0.0-1.1) Eosinophils # (Auto) 0.4 x10^3/uL (0.0-0.7) Basophils # (Auto) 0.1 x10^3/uL (0.0-0.2) Glucose (Fingerstick) 217 mg/dL (70-99) H 338 mg/dL (70-99) H Laboratory Tests 05/06/21 04:30 Laboratory Tests 05/06/21 04:00 Justifications for Admission Other Justification GINO SANDERS MD May 06, 2021 13:36
--- NOTE | 2021-05-06 13:58 | DS ---
DATE OF DISCHARGE: 05/06/2021 HOSPITAL COURSE: This patient is a 45-year-old man who does not have a continuity source of primary care, admitted with acute pancreatitis and acute onset diabetes mellitus, perhaps present prior to the pancreatitis or due to it. The patient has done well with intravenous fluids and bowel rest and is feeling a lot better today. He finished his lunch and denies any nausea, vomiting, or change in his bowel habits. His pain is well controlled with minimal narcotics. He has been found to have significant hypertriglyceridemia. We will start fenofibrate 160 mg daily. A1c is pending on this admission and it may well be the patient's insulin needs are decreased once he has improved this pancreatitis. He is willing to be aggressive with his diabetes and will use [employer] ReliOn brand Humulin 70/30, insulin 20 units twice daily and ramp up as needed. I have written prescription for those medications along with glucometer, lancets, and test strips. The patient will test his sugars twice a day prior to administration of his insulin. He is in good spirits today. I am seeing him with mother at bedside. He is very motivated to stay well. He plans on curbing his binge eating and binge alcohol intake. He feels that he will be ready to get back to work in mid May as planned. PHYSICAL EXAMINATION: VITAL SIGNS: Today is notable for that the patient has been afebrile. Blood pressure has been in the 140s/80s, improved on the losartan. Heart rate is in the 90s-100s and regular. He is breathing comfortably and saturating normally on room air. GENERAL: He is a pleasant 45-year-old male, alert and oriented x 3, no acute distress. HEENT: Unremarkable for acute abnormality. NECK: Soft and supple. No adenopathy or thyromegaly noted. CHEST: Actually clear to auscultation. HEART: S1, S2 normal. Regular rate and rhythm. No murmurs or gallops are noted. ABDOMEN: Distended, but soft, nontender. No masses or organomegaly noted. EXTREMITIES: Physical exam is unremarkable for acute abnormality. Total time today is 30 minutes with greater than 50% in counseling and coordination of care, most of which in discussion with the patient and his family. FINAL DIAGNOSES: 1. Acute pancreatitis related to alcoholism and binge eating of high fat foods. 2. Hypertriglyceridemia. 3. Acute onset of diabetes. SAVI/MOH DR: Alton TID: [id number]
--- NOTE | 2021-05-06 15:45 | NUR ---
Discharge Note: Patient was discharged home with self care. Patients IV was discontinued without any complications per IRENE. Patient was given discharge summary/instructions, follow-ups, prescriptions and educational material. Patient was stated he did not need education on how to check his blood sugar and how to give himself some insulin, stated he was three close family members and a best friend that will teach him. RN tried to treat him and educate him but patient was eager to get out of the hospital and calling people on his cell and not paying attention to the education. Patient was given a list of providers for primary care. Patient was taken down to the main entrance accompanied by IRENE Hopkins, where patients ride was here to take him home.
[2021-05-06] MEDS ORDERED: INSULIN LISPRO 300 UNITS/3 ML VIAL. SQ SCH (17:00)
[2021-05-06] MEDS ORDERED: INSULIN GLARGINE SYRINGE. SQ SCH (21:00)
[2021-05-07 22:22] LABS: HEMOGLOBIN A1C 11.6 % (4.8-5.6)
== END 2021-05-06 16:00 | disposition home or self-care (01) | DRG 637 ==
LOC: ER 16:27 → 5 NORTH 22:18 → ED HOLD 22:18 → 5 NORTH 23:06
PROVIDERS: ADMIT Family Medicine; ATTEND Family Medicine
DX: E11.65 Type 2 diabetes mellitus with hyperglycemia (principal); K85.20 Alcohol induced acute pancreatitis without necrosis or infection; E78.1 Pure hyperglyceridemia; F10.20 Alcohol dependence, uncomplicated; I10 Essential (primary) hypertension; K86.89 Other specified diseases of pancreas; M51.9 Unspecified thoracic, thoracolumbar and lumbosacral intervertebral disc disorder; Z79.4 Long term (current) use of insulin; Z79.899 Other long term (current) drug therapy; Z20.822 Contact with and (suspected) exposure to COVID-19
CPT/HCPCS: 36415; 36600; 70450; 71045; 71275; 74177; 80048; 80053; 80061; 80307; 81001; 82010; 82805; 82962; 83036; 83605; 83690; 83735; 83880; 84100; 84443; 84484; 85025; 87426; 93005; 96365; 96366; 96375; G0480; J0360; J1815; J2405; J3010; J3480; J3490; J7030; U0003; U0005; 99285-25; G0378

== ENCOUNTER 2021-11-18 23:48 | Inpatient (IN) | payer OTHER ==
[~2021-11-18] VITALS: Ht 177.8 cm; Wt 121.4 kg
[~2021-11-18 23:48] MED LIST changes: +FENO134C22 PO; +HUM100VI SQ; +LOSA-73 PO
[2021-11-19] VITALS (16 sets, daily range): BP systolic 115–187; BP diastolic 78–107
[2021-11-19] MEDS ORDERED: ONDANSETRON PF 4 MG/2 ML VIAL. IVP ONE (00:15)
[2021-11-19] MEDS ORDERED: fentaNYL PF VIAL 100 MCG/2 ML VIAL IVP ONE (00:15)
[2021-11-19] MEDS ORDERED: IV NORMAL SALINE 1000ML BAG 1,000 ML IV ONE (00:15)
[2021-11-19] MEDS ORDERED: FAMOTIDINE 20 MG/2 ML VIAL IVP ONE (00:15)
--- NOTE | 2021-11-19 00:18 | PHYS DOC ---
Past Medical History Past Medical History: Diabetes-Type II, High Cholesterol, Hypertension (ILIR MARTIN APRN) Past Surgical History: No Surgical History (ILIR MARTIN APRN) Smoking Status: Never Smoker Alcohol Use: Heavy Drug Use: None (ILIR MARTIN APRN) General Adult EDM: Chief Complaint: ABDOMINAL PAIN HPI: HPI: Patient is a 46-year-old male who presents today with epigastric pain. Patient states that his pain is very similar to his last hospitalization for pancreatitis. Patient states that he was drinking on Friday he said he has been trying to cut down on his alcohol and watch his carbs so he has been drinking Truly because he states that they were low in carbs and sugar, patient also states that he drank rum on Friday because he figured it was liquor and it would not have as much calories as beer. Patient states she is having upper abdominal pain, with nausea and vomiting, patient states he is also run out of his blood pressure medications and has cut his insulin doses in half due to him running low on his NovoLog 70/30. Patient states she just recently got insurance again and has not had a chance to follow-up with the primary care physician. (ILIR MARTIN FULL STACK DEVELOPER) Review of Systems: Review of Systems: Constitutional: Denies fever or chills. [] Eyes: Denies change in visual acuity. [] HENT: Denies nasal congestion or sore throat. [] Respiratory: Denies cough or shortness of breath. [] Cardiovascular: Denies chest pain or edema. [] GI: abdominal/epigastric pain, nausea, vomiting, denies bloody stools or diarrhea. [] : Denies dysuria. [] Musculoskeletal: Denies back pain or joint pain. [] Integument: Denies rash. [] Neurologic: Denies headache, focal weakness or sensory changes. [] Endocrine: Denies polyuria or polydipsia. [] Lymphatic: Denies swollen glands. [] Psychiatric: Denies depression or anxiety. [] (ILIR MARTIN APRN) Heart Score: C/O Chest Pain: No Risk Factors: Risk Factors: DM, Current or recent (<one month) smoker, HTN, HLP, family history of CAD, obesity. Risk Scores: Score 0 - 3: 2.5% MACE over next 6 weeks - Discharge Home Score 4 - 6: 20.3% MACE over next 6 weeks - Admit for Clinical Observation Score 7 - 10: 72.7% MACE over next 6 weeks - Early Invasive Strategies (ILIR MARTIN APRN) Current Medications: Current Medications Medications (Trade) Dose Ordered Sig/Aissatou Start Time Stop Time Status Last Admin Dose Admin Famotidine (Pepcid Vial) 20 mg 1X ONCE 11/19/21 00:15 11/19/21 00:16 UNV Ondansetron HCl (Zofran) 4 mg 1X ONCE 11/19/21 00:15 11/19/21 00:16 UNV Sodium Chloride 1,000 ml @ 999 mls/hr 1X ONCE 11/19/21 00:15 11/19/21 01:15 UNV (ILIR MARTIN APRN) Allergies: Allergies: Allergies Coded Allergies Type Severity Reaction Last Updated Verified No Known Drug Allergies 03/07/20 No (ILIR MARTIN APRN) Physical Exam: PE: Constitutional: Well developed, well nourished, moderate distress, non-toxic appearance. [] HENT: Normocephalic, atraumatic, bilateral external ears normal, oropharynx dry, no oral exudates, nose normal. [] Eyes: PERRLA, EOMI, conjunctiva normal, no discharge. [] Neck: Normal range of motion, no tenderness, supple, no stridor. [] Cardiovascular:Heart rate regular rhythm, no murmur [] Lungs & Thorax: Bilateral breath sounds clear to auscultation [] Abdomen: Bowel sounds hypoactive, abdomen is firm with pain with palpation to the epigastric area no pulsatile masses noted Skin: Warm, clammy, no erythema, no rash. [] Back: No tenderness, no CVA tenderness. [] Extremities: No tenderness, no cyanosis, no clubbing, ROM intact, no edema. [] Neurologic: Alert and oriented X 3, normal motor function, normal sensory function, no focal deficits noted. [] Psychologic: Affect normal, judgement normal, mood normal. [] (ILIR MARTIN APRN) Current Patient Data: Labs: Laboratory Tests Test 11/19/21 00:11 11/19/21 00:16 Glucose (Fingerstick) 142 mg/dL White Blood Count 12.9 x10^3/uL Red Blood Count 5.13 x10^6/uL Hemoglobin 14.5 g/dL Hematocrit 38.4 % Mean Corpuscular Volume 75 fL Mean Corpuscular Hemoglobin 28 pg Mean Corpuscular Hemoglobin Concent 37 g/dL Red Cell Distribution Width 15.7 % Platelet Count 251 x10^3/uL Neutrophils (%) (Auto) 71 % Lymphocytes (%) (Auto) 18 % Monocytes (%) (Auto) 7 % Eosinophils (%) (Auto) 4 % Basophils (%) (Auto) 1 % Neutrophils # (Auto) 9.2 x10^3/uL Lymphocytes # (Auto) 2.3 x10^3/uL Monocytes # (Auto) 0.9 x10^3/uL Eosinophils # (Auto) 0.4 x10^3/uL Basophils # (Auto) 0.1 x10^3/uL Current Medications Medications (Trade) Dose Ordered Sig/Aissatou Route PRN Reason Start Time Stop Time Status Last Admin Dose Admin Sodium Chloride 1,000 ml @ 999 mls/hr 1X ONCE IV 11/19/21 00:15 11/19/21 01:15 11/19/21 00:25 Famotidine (Pepcid Vial) 20 mg 1X ONCE IVP 11/19/21 00:15 11/19/21 00:16 DC 11/19/21 00:25 Ondansetron HCl (Zofran) 4 mg 1X ONCE IVP 11/19/21 00:15 11/19/21 00:16 DC 11/19/21 00:25 Fentanyl Citrate (Fentanyl 2ml Vial) 50 mcg 1X ONCE IVP 11/19/21 00:15 11/19/21 00:16 DC 11/19/21 00:26 Iohexol (Omnipaque 300 Mg/ml) 75 ml 1X ONCE IV 11/19/21 00:45 11/19/21 00:46 DC Info (CONTRAST GIVEN -- Rx MONITORING) 1 each PRN DAILY PRN MC SEE COMMENTS 11/19/21 00:45 11/21/21 00:44 Vital Signs: Vital Signs Date Time Temp Pulse Resp B/P (MAP) Pulse Ox O2 Delivery O2 Flow Rate FiO2 11/19/21 00:35 78 19 183/88 (119) 96 Room Air 11/19/21 00:26 21 96 Room Air Vital Signs Date Time Temp Pulse Resp B/P (MAP) Pulse Ox O2 Delivery O2 Flow Rate FiO2 11/19/21 00:26 21 96 Room Air (ILIR MARTIN APRN) EKG: EKG: [] (ILIR MARTIN APRN) EKG: Sinus rhythm, rate 75, no acute ST elevation or depression, PA 160, QRS 104, QTc 449, EP interpretation. Nonischemic tracing, intervals appropriate. (LISA MIRAMONTES MD) Radiology/Procedures: Radiology/Procedures: [] (ILIR MARTIN FULL STACK DEVELOPER) Radiology/Procedures: EXAM: CT ANGIOGRAM CHEST, ABDOMEN, AND PELVIS WITH CONTRAST INDICATION: Upper abdominal pain, elevated troponin COMPARISON: CT chest abdomen pelvis 05/04/2021 TECHNIQUE: Helical CT angiogram performed of the chest, abdomen and pelvis after administration of 100 mL Omnipaque 350 intravenous contrast. Sagittal and coronal reformats were obtained. One or more of the following individualized dose reduction techniques were utilized for this examination: 1. Automated exposure control 2. Adjustment of the mA and/or kV according to patient size 3. Use of iterative reconstruction technique. FINDINGS: CHEST: Thyroid gland and thoracic inlet: Unremarkable. Heart and great vessels: Heart is normal in size. No pericardial effusion. The thoracic aorta is normal in caliber. No evidence of aortic dissection. No acute pulmonary embolism. Mediastinum and tito: There are multiple small mediastinal and bilateral hilar lymph nodes, nonspecific. Lungs and pleura: There are calcified granuloma in the left lower lobe. Unchanged 5 mm nodule in the left upper lobe. No pleural effusion or pneumothorax. Chest wall and axillae: No axillary lymphadenopathy. Bones: No acute osseous abnormality. ABDOMEN AND PELVIS: Liver: Liver is enlarged measuring 23 cm. Mild hepatic steatosis. No focal liver lesion. Gallbladder/Biliary Tree: Normal. Pancreas: Normal. Spleen: Normal. Adrenal Glands: Normal. Kidneys/Ureters/Bladder: Kidneys are normal in size and enhance symmetrically. There is a subcentimeter hypodensity in the right kidney is too small to characterize. No hydronephrosis. Ureters and bladder are normal. Reproductive Organs: Prostate gland is normal. Stomach, small bowel, and colon: The stomach, small bowel, appendix, and colon are normal. Vasculature: No aortic aneurysm. Suboptimal phase of contrast in the abdominal aorta to evaluate for abdominal aortic dissection. Lymph Nodes: No lymphadenopathy. Peritoneum and retroperitoneum: No free fluid or free air. Bones: No acute osseous abnormality. Mild degenerative disc disease at L5-S1. IMPRESSION: 1. No acute pulmonary embolism or thoracic aortic dissection. Suboptimal phase of contrast in the abdominal aorta to evaluate for abdominal aortic dissection. 2. Stable 5 mm nodule in the left upper lobe. 3. Hepatomegaly and hepatic steatosis. Electronically signed by: Bette Mariee MD (11/19/2021 3:06 AM) [facility] DICTATED and SIGNED BY: BETTE MARIEE MD DATE: 11/19/21 025 (LISA MIRAMONTES MD) Course & Med Decision Making: Course & Med Decision Making Pertinent Labs and Imaging studies reviewed. (See chart for details) [address] Miramontes. (ILIR MARTIN APRN) Course & Med Decision Making 0100: Dr. Miramontes assuming care from STRANNER Kori at the end of her shift, pending rest of labs and imaging. In brief, this is a 46-year-old male with a history of hypertension, hyperlipidemia, insulin-dependent diabetes and tobacco use. He had an admission to this facility last year for acute pancreatitis likely secondary to hypertriglyceridemia. He was incidentally found to be diabetic and was started on insulin along with medication for his blood pressure and for his high triglyceride level. He tells me he has not been taking any of his medicines aside from his insulin due to cost concerns and has been halving the dose of that for the past few days because he has been running low. He has made a real effort to lose weight and is down 60 pounds from where he was when he was admitted last year. Mr. Pickard presents to the emergency department for evaluation of epigastric discomfort radiating to the right upper quadrant at times, with onset about 24 hours prior to arrival. Patient states discomfort feels identical to the discomfort he had last year with his acute pancreatitis. Discomfort is sharp, focal, localizes to the epigastrium and is reproducible to direct palpation of the epigastrium. Discomfort does not radiate. He denies associated vomiting, upper respiratory congestion/rhinorrhea, cough, sore throat, shortness of breath or chest pain of any kind, flank pain, midline back pain, dysuria, hematuria, polyuria or oliguria, groin pain, changes in bowel habits, pain or swelling to arms or legs. On my examination the only notable finding is focal epigastric tenderness to palpation. There is some mild tenderness to palpation over the right upper quadrant as well. Awaiting additional labs and imaging results for disposition. 0300: Labs and imaging are as above, remarkable primarily for marked hypertriglyceridemia (patient's blood was noted to be grossly lipemic when drawn this morning), normal lipase without radiographic evidence of pancreatitis, and elevated troponin without associated chest pain. Blood pressures have been markedly elevated during patient's time in the emergency department. Have started the patient on a nicardipine drip, have given a full-strength aspirin and a dose of Lovenox. In the absence of chest pain, favor Type II NSTEMI secondary to demand from elevated blood pressure, though Type I NSTEMI with atypical upper abdominal discomfort is certainly a possibility. Will admit for further care, to include cardiology consultation. Dr. Franklin graciously accepts. Critical care time today was 44 minutes for NSTEMI and severe hypertension necessitating parenteral therapy. (LISA MIRAMONTES MD) Dragon Disclaimer: Dragon Disclaimer: This electronic medical record was generated, in whole or in part, using a voice recognition dictation system. (ILIR MARTIN APRN) Departure Departure Impression: Primary Impression: NSTEMI (non-ST elevated myocardial infarction) Additional Impressions: Hypertensive urgency Acute epigastric pain Hypertriglyceridemia Disposition: ADMITTED INPATIENT Condition: GUARDED Referrals: NO PCP (PCP) ILIR MARTIN APRN Nov 19, 2021 00:18 LISA MIRAMONTES MD Nov 19, 2021 03:19
[2021-11-19 00:28] LABS: BASO # 0.1 x10^3/uL (0.0-0.2); BASO % 1 % (0-3); EOS # 0.4 x10^3/uL (0.0-0.7); EOS % 4 % (0-3); HEMATOCRIT 38.4 % (39.0-53.0); LYMPH # 2.3 x10^3/uL (1.0-4.8); LYMPH % 18 % (24-48); MEAN CORPUSCULAR VOLUME 75 fL (79-100); MONO # 0.9 x10^3/uL (0.0-1.1); MONO % 7 % (0-9); NEUT # 9.2 x10^3/uL (1.8-7.7); NEUT % 71 % (31-73); PLATELET COUNT 251 x10^3/uL (140-400); RED BLOOD COUNT 5.13 x10^6/uL (4.30-5.70); RED CELL DISTRIBUTION WIDTH 15.7 % (11.5-14.5); WHITE BLOOD COUNT 12.9 x10^3/uL (4.0-11.0)
[2021-11-19] MEDS ORDERED: CONTRAST GIVEN. MC PRN (00:45)
[2021-11-19] MEDS ORDERED: IOHEXOL 300 MG/ML 100ML VIAL. IV ONE (00:45)
[2021-11-19 00:48] LABS: MEAN CORPUSCULAR HEMOGLOBIN 28 pg (25-35); MEAN CORPUSCULAR HGB CONC 37 g/dL (31-37)
[2021-11-19 00:49] LABS: HEMOGLOBIN 14.5 g/dL (13.0-17.5)
[2021-11-19 01:33] LABS: CREATININE 0.9 mg/dL (0.7-1.3); GFR 91.3; POTASSIUM 3.5 mmol/L (3.5-5.1)
[2021-11-19 01:40] LABS: ALBUMIN 3.5 g/dL (3.4-5.0); ALBUMIN/GLOBULIN RATIO 0.9 (1.0-1.7); TOTAL BILIRUBIN 0.2 mg/dL (0.2-1.0); TOTAL PROTEIN 7.4 g/dL (6.4-8.2)
[2021-11-19] MEDS ORDERED: IOHEXOL 350 MG/ML 100 ML VIAL. IV ONE (02:00)
[2021-11-19] MEDS ORDERED: ASPIRIN 325 MG TABLET PO ONE (02:15)
[2021-11-19] MEDS ORDERED: MORPHINE SULFATE 4 MG/ML INJ. IVP ONE (02:30)
--- NOTE | 2021-11-19 03:08 | RAD ---
EXAM: CT ANGIOGRAM CHEST, ABDOMEN, AND PELVIS WITH CONTRAST INDICATION: Upper abdominal pain, elevated troponin COMPARISON: CT chest abdomen pelvis 05/04/2021 TECHNIQUE: Helical CT angiogram performed of the chest, abdomen and pelvis after administration of 10 0 mL Omnipaque 350 intravenous contrast. Sagittal and coronal reformats were obtained. One or more of the following individualized dose reduction techniques were utilized for this examinat ion: 1. Automated exposure control 2. Adjustment of the mA and/or kV according to patient size 3. Use of iterative reconstruction technique. FINDINGS: CHEST: Thyroid gland and thoracic inlet: Unremarkable. Heart and great vessels: Heart is normal in size. No pericardial effusion. The thoracic aorta is norm al in caliber. No evidence of aortic dissection. No acute pulmonary embolism. Mediastinum and tito: There are multiple small mediastinal and bilateral hilar lymph nodes, nonspecif ic. Lungs and pleura: There are calcified granuloma in the left lower lobe. Unchanged 5 mm nodule in the left upper lobe. No pleural effusion or pneumothorax. Chest wall and axillae: No axillary lymphadenopathy. Bones: No acute osseous abnormality. ABDOMEN AND PELVIS: Liver: Liver is enlarged measuring 23 cm. Mild hepatic steatosis. No focal liver lesion. Gallbladder/Biliary Tree: Normal. Pancreas: Normal. Spleen: Normal. Adrenal Glands: Normal. Kidneys/Ureters/Bladder: Kidneys are normal in size and enhance symmetrically. There is a subcentimet er hypodensity in the right kidney is too small to characterize. No hydronephrosis. Ureters and bladd er are normal. Reproductive Organs: Prostate gland is normal. Stomach, small bowel, and colon: The stomach, small bowel, appendix, and colon are normal. Vasculature: No aortic aneurysm. Suboptimal phase of contrast in the abdominal aorta to evaluate for abdominal aortic dissection. Lymph Nodes: No lymphadenopathy. Peritoneum and retroperitoneum: No free fluid or free air. Bones: No acute osseous abnormality. Mild degenerative disc disease at L5-S1. IMPRESSION: 1. No acute pulmonary embolism or thoracic aortic dissection. Suboptimal phase of contrast in the ab dominal aorta to evaluate for abdominal aortic dissection. 2. Stable 5 mm nodule in the left upper lobe. 3. Hepatomegaly and hepatic steatosis. Electronically signed by: Bette Mariee MD (11/19/2021 3:06 AM) [facility]
[2021-11-19 03:40] LABS: RBC,URINE OCC /HPF (0-2); WBC,URINE 0 /HPF (0-4)
[2021-11-19 03:41] LABS: BACTERIA,URINE 0 /HPF (0-FEW)
[2021-11-19] MEDS ORDERED: ONDANSETRON PF 4 MG/2 ML VIAL. IVP PRN (03:45)
[2021-11-19] MEDS: IV NORMAL SALINE 1000ML BAG 1,000 ML IV SCH ×3 (04:09→19:45)
[2021-11-19] MEDS: MORPHINE SULFATE 2 MG/ML INJ. IVP PRN ×2 (04:52→09:06)
[2021-11-19] MEDS ORDERED: ATOR40TA59 PO (05:25)
[2021-11-19] MEDS ORDERED: LOSA25TA PO (05:25)
--- NOTE | 2021-11-19 11:18 | PDOC2 ---
BRUCE KOHLI SIZE CUTTER 11/19/21 1117: CARDIAC CONSULT DATE OF CONSULT Date of Consult DATE: 11/19/21 TIME: 11:14 REASON FOR CONSULT Reason for Consult: NSTEMI REFERRING PHYSICIAN Referring Physician: Dr. Miramontes SOURCE Source: Chart review, Patient HISTORY OF PRESENT ILLNESS HISTORY OF PRESENT ILLNESS This is a 46 yo male who presented secondary to abdominal pain. Patient has a history of pancreatitis related to alcohol use and underlying hypertriglyceridemia. Was drinking heavily on Friday for [employer] basketball game and was eating foods he knows he shouldn't. Began developing intense pain in his abdomen. Reports abdomen became distended and he felt very bloated. Reports pain was the same as what he had previously experience with pancreatitis so her came into the ED for further evaluation and treatment. Has not has anything to drink of eat and reports pain has improved. Blood pressure also significantly elevated upon arrival. Patient repots he was about to run out of his blood pressure medications so he began taking them every other day. Was placed on Cardene gtt, which remains. He denies any chest pain, shortness of breath, dizziness, or palpitations. PAST MEDICAL HISTORY Cardiovascular: HTN, Hyperlipidemia, Other (hypertriglyceridemia) Pulmonary: Other (MADELYN) GI: Other (pancreatitis ) Endocrine: Diabetes PAST SURGICAL HISTORY Past Surgical History: No pertinent history FAMILY HISTORY Family History: Hypertension SOCIAL HISTORY Smoke: Quit ALCOHOL: social Drugs: Other (h/o meth use, but has bee nsober for 5-6 years) Lives: with Family CURRENT MEDICATIONS CURRENT MEDICATIONS Current Medications Medications (Trade) Dose Ordered Sig/Aissatou Route PRN Reason Start Time Stop Time Status Last Admin Dose Admin Sodium Chloride 1,000 ml @ 999 mls/hr 1X ONCE IV 11/19/21 00:15 11/19/21 01:15 DC 11/19/21 00:25 Famotidine (Pepcid Vial) 20 mg 1X ONCE IVP 11/19/21 00:15 11/19/21 00:16 DC 11/19/21 00:25 Ondansetron HCl (Zofran) 4 mg 1X ONCE IVP 11/19/21 00:15 11/19/21 00:16 DC 11/19/21 00:25 Fentanyl Citrate (Fentanyl 2ml Vial) 50 mcg 1X ONCE IVP 11/19/21 00:15 11/19/21 00:16 DC 11/19/21 00:26 Iohexol (Omnipaque 350 Mg/ml) 100 ml 1X ONCE IV 11/19/21 02:00 11/19/21 02:01 DC 11/19/21 02:14 Aspirin (Harry Aspirin) 325 mg 1X ONCE PO 11/19/21 02:15 11/19/21 02:16 DC 11/19/21 02:43 Morphine Sulfate (Morphine Sulfate) 4 mg 1X ONCE IVP 11/19/21 02:30 11/19/21 02:33 DC 11/19/21 02:44 Nicardipine HCl 50 mg/Sodium Chloride 250 ml @ 25 mls/hr CONT PRN IV PER PROTOCOL 11/19/21 02:30 11/19/21 09:15 Enoxaparin Sodium (Lovenox 120mg Syringe) 120 mg 1X ONCE SQ 11/19/21 03:15 11/19/21 03:18 DC 11/19/21 03:30 Morphine Sulfate (Morphine Sulfate) 2 mg PRN Q2HR PRN IVP PAIN 11/19/21 03:45 11/20/21 03:44 11/19/21 09:06 Sodium Chloride 1,000 ml @ 125 mls/hr Q8H IV 11/19/21 03:45 11/20/21 03:44 11/19/21 04:09 ALLERGIES ALLERGIES: Coded Allergies: No Known Drug Allergies (Unverified , 03/07/20) ROS Review of System 14 point ROS conducted with pertinent positives noted above in HPI PHYSICAL EXAM General: Alert, Oriented X3, Cooperative, No acute distress HEENT: Atraumatic Lungs: Clear to auscultation Heart: Regular rate Abdomen: Soft Extremities: No edema, Normal pulses Skin: No significant lesion Neuro: Normal speech, Sensation intact Psych/Mental Status: Mental status NL, Mood NL MUSCULOSKELETAL: Osteoarthritic changes both hands VITALS/I&O VITALS/I&O: Vital Signs Date Time Temp Pulse Resp B/P (MAP) Pulse Ox O2 Delivery O2 Flow Rate FiO2 11/19/21 09:06 100 Room Air 11/19/21 06:00 80 18 163/96 11/19/21 04:30 98.2 98.2 I & O 11/18/21 11/18/21 11/19/21 15:00 23:00 07:00 Intake Total 1035 ml Output Total 450 ml Balance 585 ml LABS Lab: Laboratory Tests Test 11/19/21 00:11 11/19/21 00:16 11/19/21 02:57 11/19/21 03:27 Glucose (Fingerstick) 142 mg/dL (70-99) H White Blood Count 12.9 x10^3/uL (4.0-11.0) H Red Blood Count 5.13 x10^6/uL (4.30-5.70) Hemoglobin 14.5 g/dL (13.0-17.5) Hematocrit 38.4 % (39.0-53.0) L Mean Corpuscular Volume 75 fL (79-100) L Mean Corpuscular Hemoglobin 28 pg (25-35) Mean Corpuscular Hemoglobin Concent 37 g/dL (31-37) Red Cell Distribution Width 15.7 % (11.5-14.5) H Platelet Count 251 x10^3/uL (140-400) Neutrophils (%) (Auto) 71 % (31-73) Lymphocytes (%) (Auto) 18 % (24-48) L Monocytes (%) (Auto) 7 % (0-9) Eosinophils (%) (Auto) 4 % (0-3) H Basophils (%) (Auto) 1 % (0-3) Neutrophils # (Auto) 9.2 x10^3/uL (1.8-7.7) H Lymphocytes # (Auto) 2.3 x10^3/uL (1.0-4.8) Monocytes # (Auto) 0.9 x10^3/uL (0.0-1.1) Eosinophils # (Auto) 0.4 x10^3/uL (0.0-0.7) Basophils # (Auto) 0.1 x10^3/uL (0.0-0.2) Sodium Level 138 mmol/L (136-145) Potassium Level 3.5 mmol/L (3.5-5.1) Chloride Level 103 mmol/L (98-107) Carbon Dioxide Level 22 mmol/L (21-32) Anion Gap 13 (6-14) Blood Urea Nitrogen 27 mg/dL (8-26) H Creatinine 0.9 mg/dL (0.7-1.3) Estimated GFR (Cockcroft-Gault) 91.3 BUN/Creatinine Ratio 30 (6-20) H Glucose Level 128 mg/dL (70-99) H Calcium Level 9.0 mg/dL (8.5-10.1) Total Bilirubin 0.2 mg/dL (0.2-1.0) Aspartate Amino Transferase (AST) 56 U/L (15-37) H Alanine Aminotransferase (ALT) 41 U/L (16-63) Alkaline Phosphatase 134 U/L (46-116) H Troponin I High Sensitivity 169 ng/L (4-75) H 148 ng/L (4-75) H QU-Ufj-N-Type Natriuretic Peptide 113 pg/mL (0-124) Total Protein 7.4 g/dL (6.4-8.2) Albumin 3.5 g/dL (3.4-5.0) Albumin/Globulin Ratio 0.9 (1.0-1.7) L Triglycerides Level 5315 mg/dL (0-150) H Lipase 90 U/L (73-393) Ethyl Alcohol Level < 10 mg/dL (0-10) Urine Collection Type Unknown Urine Color (Auto) Colorless Urine Turbidity Clear Urine pH (Auto) 6.0 (<5.0-8.0) Urine Specific [place] 1.041 (1.000-1.030) Urine Protein (Auto) 50 mg/dL (Negative) Urine Glucose (Auto)(UA) Negative mg/dL (Negative) Urine Ketones (Auto) Negative mg/dL (Negative) Urine Blood (Auto) Trace (Negative) Urine Nitrite Negative (Negative) Urine Bilirubin (Auto) Negative (Negative) Urine Urobilinogen (Auto) Normal mg/dL (Normal) Urine Leukocyte Esterase (Auto) Negative (Negative) Urine RBC Occ /HPF (0-2) Urine WBC 0 /HPF (0-4) Urine Squamous Epithelial Cells Occ /LPF Urine Bacteria 0 /HPF (0-FEW) Test 11/19/21 03:53 11/19/21 06:50 Troponin I High Sensitivity 143 ng/L (4-75) H 151 ng/L (4-75) H Laboratory Tests 11/19/21 00:16 Laboratory Tests 11/19/21 00:16 ASSESSMENT/PLAN ASSESSMENT/PLAN 1. Abdominal pain, h/o pancreatitis. Heavy ETOH consumption precipitating pain 2. Elevated troponin; high sensitivity troponin highest 169. Most probably type II, demand ischemia. EKG without significant acute changes 3. Hypertensive urgency; on Cardene gtt. Has been taking med QOD as he is about to run out 4. Hyperlipidemia; statin 5. Diabetes, II 6. ETOH misuse 7. Probable MADELYN Recommendations Resume home antiHTN therapy when okay to take oral Titrate off Cardene gtt Echo to assess LV systolic function Lipids Outpatient ischemic evaluation Consult GI Needs outpatient MADELYN workup Supportive care JONATAN FLEMING MD 11/19/21 6122: CARDIAC CONSULT ASSESSMENT/PLAN ASSESSMENT/PLAN Patient seen and examined He reports feeling mildly improved. I agree with our nurse practitioners assessment and plan. 1. Abdominal pain, h/o pancreatitis. Heavy ETOH consumption precipitating pain. GI evaluation. 2. Elevated troponin; high sensitivity troponin highest 169. Most probably type II, demand ischemia. EKG without significant acute changes. Echo pending. Outpatient ischemia evaluation. 3. Hypertensive urgency; on Cardene gtt. he has not been taking his medications as prescribed. 4. Hyperlipidemia; statin 5. Diabetes, II 6. ETOH misuse 7. Probable MADELYN. Outpatient work-up. BRUCE KOHLI APRN Nov 19, 2021 11:17 JONATAN FLEMING MD Nov 19, 2021 17:42
--- NOTE | 2021-11-19 12:29 | EKG ---
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
--- NOTE | 2021-11-19 12:40 | HP ---
DATE OF SERVICE: 11/19/2021 ADMIT DATE: 11/19/2021 CHIEF COMPLAINT: Abdominal pain. HISTORY OF PRESENT ILLNESS: The patient is a pleasant 46-year-old male who presented to the ER with abdominal pain. He states he has had similar episodes in the past where he had pancreatitis and had to be hospitalized. He states he has lost 40 pounds over the past few months. He also had quit drinking, but now started drinking a little more. His A1c was down to 5. He was doing better, but now he presents with abdominal pain and was noted to have elevated troponin and hypertensive urgency. He is now in the ICU on a Cardene drip. We have consulted Cardiology. He might be going for cardiac catheterization. We are awaiting Cardiology input. PAST MEDICAL HISTORY: Noncompliance, obesity, but he has lost 40 pounds. Previous alcohol issues, but he states he only drinks a couple of times a month now. Diabetes, hypertension, hyperlipidemia, heavy alcohol abuse. ALLERGIES: None. FAMILY HISTORY: Diabetes. SOCIAL HISTORY: He used to drink heavy, he states he is down to a couple drinks a month, but he drinks whiskey. MEDICATIONS: Reviewed, please refer to the MRAD. REVIEW OF SYSTEMS: GENERAL: No history of weight change, weakness or fevers. SKIN: No bruising, hair changes or rashes. EYES: No blurred, double or loss of vision. NOSE AND THROAT: No history of nosebleeds, hoarseness or sore throat. HEART: He complains of chest pain. LUNGS: Denies cough, hemoptysis, wheezing or shortness of breath. GASTROINTESTINAL: He complains of abdominal pain. GENITOURINARY: No history of frequency, urgency, hesitancy or nocturia. NEUROLOGIC: Denies history of numbness, tingling, tremor or weakness. PSYCHIATRIC: No history of panic, anxiety or depression. ENDOCRINE: No history of heat or cold intolerance, polyuria or polydipsia. EXTREMITIES: Denies muscle weakness, joint pain, pain on walking or stiffness. PHYSICAL EXAMINATION: VITALS: Within normal limits and are stable. GENERAL: No apparent distress. Alert and oriented. HEENT: Normal cephalic atraumatic, external auditory canals are patent. EYES: Extraocular muscles are intact, pupils are equally round and reactive to light and accommodation. MUSCULOSKELETAL: Well developed, well nourished, good range of motion. ENDOCRINE: No thyromegaly was palpated. LYMPHATICS: No cervical chain or axillary nodes were noted. HEMATOPOIETIC: No bruising. NECK: Supple, no JVD, no thyromegaly was noted. LUNGS: Clear to auscultation in all lung duran without rhonchi or wheezing. HEART: RRR, S1, S2 present. Peripheral pulses intact, no obvious murmurs were noted. ABDOMEN: Soft, nontender. Positive bowel sounds no organomegaly, normal bowel sounds. EXTREMITIES: Without any cyanosis, clubbing, or edema. Pedal pulses intact, Homans sign is negative. NEUROLOGIC: Normal speech, normal tone. A and O x 3, moves all extremities, no obvious focal deficits. PSYCHIATRIC: Normal affect, normal mood. Stable. SKIN: No ulcerations or rashes, good skin turgor, no jaundice. VASCULAR: Good capillary refill, neurovascular bundle appears to be intact. LABORATORY DATA: Troponin is ranging between 169 and 143. White count is 12, hemoglobin 14, platelets 251. Alcohol level less than 10. Urinalysis negative. CT of the abdomen shows an enlarged liver with hepatic steatosis and a 5 mm left upper lobe pulmonary nodule. ASSESSMENT AND PLAN: Abdominal pain, elevated troponin, alcohol issues, hypertensive urgency, hepatic steatosis. The patient will be admitted. He is in the ICU. We have him on a Cardene drip. We have consulted Cardiology. Serial enzymes, serial EKGs, n.p.o. for now, IV fluids, p.r.n. morphine. He got 120 mg dose of Lovenox until Cardiology sees him for further recommendations. We are trying to titrate off the Cardene drip eventually later today. Prognosis guarded. MELINDA/TOD DR: Coy TID: [id number]
--- NOTE | 2021-11-19 13:09 | PDOC2 ---
GI CONSULT Date of Service: DATE: 11/19/21 TIME: 13:09 Reason For Consult: epigastric pain HPI: HPI: 46 y/o male admitted through ER. Epigastric pain since Friday - started while drinking alcohol watching basketball. Similar to past pancreatitis. 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 Denies reflux/heartburn, dysphagia, n/v, diarrhea, constipation, hematochezia, and melena. No previous EGD or colonoscopy. No GB or PUD history. Thinks some liver issue noted in past related to being overweight. Anxious to be discharged - has an important job and needs to be at work tomorrow. No PCP, running out of meds so not taking daily. Has intentionally lost ~40 pounds over the past 6 months or so w/ diet and exercise; however, last week and over the weekend ate and drank many things he knows he shouldn't. Has backed off on alcohol use - now drinks things like Trulys about twice monthly, but drank liquor during [employer] game on Friday. PMH: PMH: HTN, MADELYN, HLD, DM, pancreatitis FH: Family History: No pertinent hx Social History: ALCOHOL: heavy ROS: GEN: Denies fevers, chills, sweats HEENT: Denies blurred vision, sore throat CV: Denies chest pain RESP: Denies shortness of air, cough GI: Per HPI : Denies hematuria, dysuria ENDO: Denies weight changes NEURO: Denies confusion, dizziness MSK: Denies weakness, joint pain/swelling SKIN: Denies jaundice, pruritus Vitals: Vitals: Vital Signs Date Time Temp Pulse Resp B/P (MAP) Pulse Ox O2 Delivery O2 Flow Rate FiO2 11/19/21 11:00 86 16 166/97 94 Room Air 11/19/21 04:30 98.2 98.2 Labs: Labs: Laboratory Tests Test 11/19/21 00:11 11/19/21 00:16 11/19/21 02:57 11/19/21 03:27 Glucose (Fingerstick) 142 mg/dL (70-99) White Blood Count 12.9 x10^3/uL (4.0-11.0) Red Blood Count 5.13 x10^6/uL (4.30-5.70) Hemoglobin 14.5 g/dL (13.0-17.5) Hematocrit 38.4 % (39.0-53.0) Mean Corpuscular Volume 75 fL (79-100) Mean Corpuscular Hemoglobin 28 pg (25-35) Mean Corpuscular Hemoglobin Concent 37 g/dL (31-37) Red Cell Distribution Width 15.7 % (11.5-14.5) Platelet Count 251 x10^3/uL (140-400) Neutrophils (%) (Auto) 71 % (31-73) Lymphocytes (%) (Auto) 18 % (24-48) Monocytes (%) (Auto) 7 % (0-9) Eosinophils (%) (Auto) 4 % (0-3) Basophils (%) (Auto) 1 % (0-3) Neutrophils # (Auto) 9.2 x10^3/uL (1.8-7.7) Lymphocytes # (Auto) 2.3 x10^3/uL (1.0-4.8) Monocytes # (Auto) 0.9 x10^3/uL (0.0-1.1) Eosinophils # (Auto) 0.4 x10^3/uL (0.0-0.7) Basophils # (Auto) 0.1 x10^3/uL (0.0-0.2) Sodium Level 138 mmol/L (136-145) Potassium Level 3.5 mmol/L (3.5-5.1) Chloride Level 103 mmol/L (98-107) Carbon Dioxide Level 22 mmol/L (21-32) Anion Gap 13 (6-14) Blood Urea Nitrogen 27 mg/dL (8-26) Creatinine 0.9 mg/dL (0.7-1.3) Estimated GFR (Cockcroft-Gault) 91.3 BUN/Creatinine Ratio 30 (6-20) Glucose Level 128 mg/dL (70-99) Calcium Level 9.0 mg/dL (8.5-10.1) Total Bilirubin 0.2 mg/dL (0.2-1.0) Aspartate Amino Transf (AST/SGOT) 56 U/L (15-37) Alanine Aminotransferase (ALT/SGPT) 41 U/L (16-63) Alkaline Phosphatase 134 U/L (46-116) Troponin I High Sensitivity 169 ng/L (4-75) 148 ng/L (4-75) CH-Fjt-V-Type Natriuretic Peptide 113 pg/mL (0-124) Total Protein 7.4 g/dL (6.4-8.2) Albumin 3.5 g/dL (3.4-5.0) Albumin/Globulin Ratio 0.9 (1.0-1.7) Triglycerides Level 5315 mg/dL (0-150) Lipase 90 U/L (73-393) Ethyl Alcohol Level < 10 mg/dL (0-10) Urine Collection Type Unknown Urine Color (Auto) Colorless Urine Turbidity Clear Urine pH (Auto) 6.0 (<5.0-8.0) Urine Specific [place] 1.041 (1.000-1.030) Urine Protein (Auto) 50 mg/dL (Negative) Urine Glucose (Auto)(UA) Negative mg/dL (Negative) Urine Ketones (Auto) Negative mg/dL (Negative) Urine Blood (Auto) Trace (Negative) Urine Nitrite Negative (Negative) Urine Bilirubin (Auto) Negative (Negative) Urine Urobilinogen (Auto) Normal mg/dL (Normal) Urine Leukocyte Esterase (Auto) Negative (Negative) Urine RBC Occ /HPF (0-2) Urine WBC 0 /HPF (0-4) Urine Squamous Epithelial Cells Occ /LPF Urine Bacteria 0 /HPF (0-FEW) Test 11/19/21 03:53 11/19/21 06:50 Troponin I High Sensitivity 143 ng/L (4-75) 151 ng/L (4-75) Allergies: Coded Allergies: No Known Drug Allergies (Unverified , 03/07/20) Medications: Current Medications Medications (Trade) Dose Ordered Sig/Aissatou Route PRN Reason Start Time Stop Time Status Last Admin Dose Admin Sodium Chloride 1,000 ml @ 999 mls/hr 1X ONCE IV 11/19/21 00:15 11/19/21 01:15 DC 11/19/21 00:25 Famotidine (Pepcid Vial) 20 mg 1X ONCE IVP 11/19/21 00:15 11/19/21 00:16 DC 11/19/21 00:25 Ondansetron HCl (Zofran) 4 mg 1X ONCE IVP 11/19/21 00:15 11/19/21 00:16 DC 11/19/21 00:25 Fentanyl Citrate (Fentanyl 2ml Vial) 50 mcg 1X ONCE IVP 11/19/21 00:15 11/19/21 00:16 DC 11/19/21 00:26 Iohexol (Omnipaque 350 Mg/ml) 100 ml 1X ONCE IV 11/19/21 02:00 11/19/21 02:01 DC 11/19/21 02:14 Aspirin (Harry Aspirin) 325 mg 1X ONCE PO 11/19/21 02:15 11/19/21 02:16 DC 11/19/21 02:43 Morphine Sulfate (Morphine Sulfate) 4 mg 1X ONCE IVP 11/19/21 02:30 11/19/21 02:33 DC 11/19/21 02:44 Nicardipine HCl 50 mg/Sodium Chloride 250 ml @ 25 mls/hr CONT PRN IV PER PROTOCOL 11/19/21 02:30 11/19/21 09:15 Enoxaparin Sodium (Lovenox 120mg Syringe) 120 mg 1X ONCE SQ 11/19/21 03:15 11/19/21 03:18 DC 11/19/21 03:30 Morphine Sulfate (Morphine Sulfate) 2 mg PRN Q2HR PRN IVP PAIN 11/19/21 03:45 11/20/21 03:44 11/19/21 09:06 Sodium Chloride 1,000 ml @ 125 mls/hr Q8H IV 11/19/21 03:45 11/20/21 03:44 11/19/21 04:09 Imaging: Imaging: C/A/P CT CHEST: Thyroid gland and thoracic inlet: Unremarkable. Heart and great vessels: Heart is normal in size. No pericardial effusion. The thoracic aorta is normal in caliber. No evidence of aortic dissection. No acute pulmonary embolism. Mediastinum and tito: There are multiple small mediastinal and bilateral hilar lymph nodes, nonspecific. Lungs and pleura: There are calcified granuloma in the left lower lobe. Unchanged 5 mm nodule in the left upper lobe. No pleural effusion or pneumothorax. Chest wall and axillae: No axillary lymphadenopathy. Bones: No acute osseous abnormality. ABDOMEN AND PELVIS: Liver: Liver is enlarged measuring 23 cm. Mild hepatic steatosis. No focal liver lesion. Gallbladder/Biliary Tree: Normal. Pancreas: Normal. Spleen: Normal. Adrenal Glands: Normal. Kidneys/Ureters/Bladder: Kidneys are normal in size and enhance symmetrically. There is a subcentimeter hypodensity in the right kidney is too small to characterize. No hydronephrosis. Ureters and bladder are normal. Reproductive Organs: Prostate gland is normal. Stomach, small bowel, and colon: The stomach, small bowel, appendix, and colon are normal. Vasculature: No aortic aneurysm. Suboptimal phase of contrast in the abdominal aorta to evaluate for abdominal aortic dissection. Lymph Nodes: No lymphadenopathy. Peritoneum and retroperitoneum: No free fluid or free air. Bones: No acute osseous abnormality. Mild degenerative disc disease at L5-S1. IMPRESSION: 1. No acute pulmonary embolism or thoracic aortic dissection. Suboptimal phase of contrast in the abdominal aorta to evaluate for abdominal aortic dissection. 2. Stable 5 mm nodule in the left upper lobe. 3. Hepatomegaly and hepatic steatosis. PE: GEN: NAD HEENT: Atraumatic, PERRL LUNGS: CTAB HEART: RRR ABD: quiet BS, soft, non-distended, mild epigastric/RUQ discomfort EXTREMITY: No edema SKIN: tattoos NEURO/PSYCH: A & O 3 A/P: A/P: Epigastric pain HTN Elevated troponin, leukocytosis, microcytosis, mildly elevated AST and Alk Phos, hypertryglyceridemia (>5000) CRC screen - none Hepatomegaly, hepatic steatosis H/o pancreatitis - attributed to alcohol in past - CT w/ pancreatitis here in 04/2021 (did not see GI) H/o alcohol overuse - has backed off but did drink more over the weekend Non-compliance - running out of meds recently -- Normal lipase and normal pancreas per CT report. Check GB US, iron profile, and tox screen for completeness. Add acid-welder first class, try GI cocktail. Okay w/ GI to try clears after US - d/w nurse. He's anxious to discharge - continue per primary/cardiology. Encouraged compliance w/ medications, establishing PCP, avoidance of alcohol, etc. Follow- up for screening colonoscopy +/- EGD as outpt. ANIRUDH SOUZA Nov 19, 2021 13:09
[2021-11-19] MEDS ORDERED: LIDO:MAALOX 1:1 20 ML SINGLE DOSE. PO PRN (13:15)
--- NOTE | 2021-11-19 14:24 | RAD ---
EXAMINATION: RIGHT UPPER QUADRANT ULTRASOUND CLINICAL HISTORY: Epigastric pain. TECHNIQUE: Sonography of the right upper quadrant was performed. COMPARISON: None FINDINGS: Pancreas: Grossly unremarkable on limited evaluation. - Portions obscured: Tail Liver: Enlarged - Echotexture: Normal, homogeneous. - Echogenicity: Increased, compatible steatosis - Surface contour: Smooth - Lesions: None. Biliary: No intrahepatic biliary duct dilation. - CBD: 4 mm. - Gallbladder: Normal caliber - Contents: No cholelithiasis - Wall: Normal - Other: No pericholecystic fluid. Right Kidney: Measures 14.0 cm in length. No hydronephrosis or focal lesion. Ascites: None. Aorta/IVC: Partially visualized aorta and IVC unremarkable. IMPRESSION: Hepatomegaly with steatosis. Electronically signed by: Ramana Harkins DO (11/19/2021 2:21 PM) [id number]
[2021-11-19] MEDS: LOSARTAN POTASSIUM 25 MG TABLET. PO SCH (15:50)
[2021-11-19] MEDS: PANTOPRAZOLE 40 MG TABLET.DR. PO SCH (15:52)
[2021-11-19] MEDS: hydrALAZINE 20 MG/ML VIAL. IVP PRN ×2 (17:21→21:26)
[2021-11-19 17:53] LABS: BARBITURATES NEG (NEG); BENZODIAZEPINES NEG (NEG); CANNABINOIDS NEG (NEG); COCAINE NEG (NEG); METHADONE NEG (NEG); OPIATES POS (NEG); PHENCYCLIDINE NEG (NEG)
[2021-11-19 18:00] LABS: AMPHETAMINE/METHAMPHETAMINE NEG (NEG)
[2021-11-19 20:56] LABS: CHOLESTEROL 236 mg/dL (0-200); CHOLESTEROL/HDL RATIO 2.2; HDLC 109 mg/dL (40-60); TRIGLYCERIDES 5839 mg/dL (0-150); VLDLC 1168 mg/dL (0-40)
[2021-11-19] MEDS ORDERED: ATORVASTATIN CALCIUM 40 MG TABLET. PO SCH (21:00)
[2021-11-20] VITALS: BP 172/84
[2021-11-20 04:00] VITALS: BP 158/92
[2021-11-20 05:14] LABS: EOS % 4 % (0-3); HEMATOCRIT 40.5 % (39.0-53.0); LYMPH % 8 % (24-48); MEAN CORPUSCULAR HEMOGLOBIN 25 pg (25-35); MEAN CORPUSCULAR HGB CONC 33 g/dL (31-37); MEAN CORPUSCULAR VOLUME 75 fL (79-100); MONO % 6 % (0-9); NEUT % 82 % (31-73); PLATELET COUNT 224 x10^3/uL (140-400); RED BLOOD COUNT 5.39 x10^6/uL (4.30-5.70); RED CELL DISTRIBUTION WIDTH 15.5 % (11.5-14.5)
[2021-11-20 05:15] LABS: BASO # 0.2 x10^3/uL (0.0-0.2); BASO % 1 % (0-3); EOS # 0.5 x10^3/uL (0.0-0.7); LYMPH # 1.1 x10^3/uL (1.0-4.8); MONO # 0.8 x10^3/uL (0.0-1.1); NEUT # 11.4 x10^3/uL (1.8-7.7)
[2021-11-20 05:16] LABS: HEMOGLOBIN 13.3 g/dL (13.0-17.5)
[2021-11-20 06:24] LABS: ALBUMIN 3.3 g/dL (3.4-5.0); ALBUMIN/GLOBULIN RATIO 0.9 (1.0-1.7); CALCIUM 8.3 mg/dL (8.5-10.1); CREATININE 0.5 mg/dL (0.7-1.3); GFR 179.8; TOTAL BILIRUBIN 0.6 mg/dL (0.2-1.0)
[2021-11-20 06:39] LABS: POTASSIUM 3.8 mmol/L (3.5-5.1)
[2021-11-20] MEDS ORDERED: PERFLUTREN PROTEIN-A MICROSPHR 0.22 MG/ML 3 ML VIAL. IV ONE (07:00)
[2021-11-20] MEDS: PANTOPRAZOLE 40 MG TABLET.DR. PO SCH (08:29)
[2021-11-20] MEDS: LOSARTAN POTASSIUM 25 MG TABLET. PO SCH (08:31)
--- NOTE | 2021-11-20 09:47 | PDOC ---
CARDIO Progress Notes Date and Time Date of Service 11/20/21 Time of Evaluation 0945 Subjective Subjective: No Chest Pain, No shortness of breath, No Palpitations, Other Vitals Vitals Vital Signs Date Time Temp Pulse Resp B/P (MAP) Pulse Ox O2 Delivery O2 Flow Rate FiO2 11/20/21 08:31 70 184/87 11/20/21 04:00 98.0 16 97 Room Air 98.0 Weight Weight [ ] Input and Output Intake and Output Intake and Output 11/20/21 07:00 Intake Total 350 ml Output Total 2725 ml Balance -2375 ml Intake Oral 350 ml Output Urine Total 2725 ml Laboratory Labs Laboratory Tests Test 11/19/21 15:51 11/19/21 16:00 11/20/21 00:34 11/20/21 04:05 Glucose (Fingerstick) 101 mg/dL (70-99) 114 mg/dL (70-99) Urine Opiates Screen Pos (NEG) Urine Methadone Screen Neg (NEG) Urine Barbiturates Neg (NEG) Urine Phencyclidine Screen Neg (NEG) Urine Amphetamine/Methamphetamine Neg (NEG) Urine Benzodiazepines Screen Neg (NEG) Urine Cocaine Screen Neg (NEG) Urine Cannabinoids Screen Neg (NEG) Urine Ethyl Alcohol Neg (NEG) White Blood Count 14.0 x10^3/uL (4.0-11.0) Red Blood Count 5.39 x10^6/uL (4.30-5.70) Hemoglobin 13.3 g/dL (13.0-17.5) Hematocrit 40.5 % (39.0-53.0) Mean Corpuscular Volume 75 fL (79-100) Mean Corpuscular Hemoglobin 25 pg (25-35) Mean Corpuscular Hemoglobin Concent 33 g/dL (31-37) Red Cell Distribution Width 15.5 % (11.5-14.5) Platelet Count 224 x10^3/uL (140-400) Neutrophils (%) (Auto) 82 % (31-73) Lymphocytes (%) (Auto) 8 % (24-48) Monocytes (%) (Auto) 6 % (0-9) Eosinophils (%) (Auto) 4 % (0-3) Basophils (%) (Auto) 1 % (0-3) Neutrophils # (Auto) 11.4 x10^3/uL (1.8-7.7) Lymphocytes # (Auto) 1.1 x10^3/uL (1.0-4.8) Monocytes # (Auto) 0.8 x10^3/uL (0.0-1.1) Eosinophils # (Auto) 0.5 x10^3/uL (0.0-0.7) Basophils # (Auto) 0.2 x10^3/uL (0.0-0.2) Sodium Level 133 mmol/L (136-145) Potassium Level 3.8 mmol/L (3.5-5.1) Chloride Level 100 mmol/L (98-107) Carbon Dioxide Level 22 mmol/L (21-32) Anion Gap 11 (6-14) Blood Urea Nitrogen 7 mg/dL (8-26) Creatinine 0.5 mg/dL (0.7-1.3) Estimated GFR (Cockcroft-Gault) 179.8 BUN/Creatinine Ratio 14 (6-20) Glucose Level 153 mg/dL (70-99) Calcium Level 8.3 mg/dL (8.5-10.1) Total Bilirubin 0.6 mg/dL (0.2-1.0) Aspartate Amino Transf (AST/SGOT) 72 U/L (15-37) Alanine Aminotransferase (ALT/SGPT) 45 U/L (16-63) Alkaline Phosphatase 147 U/L (46-116) Total Protein 7.0 g/dL (6.4-8.2) Albumin 3.3 g/dL (3.4-5.0) Albumin/Globulin Ratio 0.9 (1.0-1.7) Physical Exam HEENT: Neck Supple W Full Motion Chest: Symmetric LUNGS: Clear to Auscultation Heart: RRR Abdomen: Soft N/T Extremities: No Edema Neurology: alert, oriented, follow commands Assessment Assessment 1. Abdominal pain, h/o pancreatitis. Heavy ETOH consumption precipitating pain. resolved 2. Elevated troponin; high sensitivity troponin highest 169. Most probably type II, demand ischemia. EKG without significant acute changes 3. Hypertensive urgency; off Cardene, but BP remains high 4. Hyperlipidemia; statin 5. Diabetes, II 6. ETOH misuse 7. Probable MADELYN Recommendations Increase losartan, add amlodipine Our office with arranged outpatient echo, stress test, and follow up with Dr. Carlin in clinic. Risk stratification Needs to establish PCP and have outpatient MADELYN workup Supportive care Justicifation of Admission Dx: Justifications for Admission: Justification of Admission Dx: N/A BRUCE KOHLI APRN Nov 20, 2021 09:47
[2021-11-20] MEDS ORDERED: LOSARTAN POTASSIUM 25 MG TABLET. PO ONE (10:00)
[2021-11-20] MEDS ORDERED: cloNIDine HCL 0.2 MG TABLET PO PRN (10:15)
[2021-11-20 10:48] VITALS: BP 186/97
[2021-11-20] MEDS ORDERED: OMEGA-3 FATTY ACIDS/FISH OIL 1,000 MG CAPSULE. PO SCH (11:00)
[2021-11-20] MEDS ORDERED: FENOFIBRATE,MICRONIZED 134 MG CAPSULE PO SCH (11:00)
--- NOTE | 2021-11-20 11:12 | PDOC ---
Date of Service: DATE: 11/20/21 TIME: 11:04 Subjective: Subjective: Pain-free, hungry, wants to discharge. No n/v, had a large stool. Objective: Vital Signs: Vital Signs Date Time Temp Pulse Resp B/P (MAP) Pulse Ox O2 Delivery O2 Flow Rate FiO2 11/20/21 10:48 78 186/97 11/20/21 04:00 98.0 16 97 Room Air 98.0 Labs: Laboratory Tests Test 11/19/21 15:51 11/19/21 16:00 11/20/21 00:34 11/20/21 04:05 Glucose (Fingerstick) 101 mg/dL 114 mg/dL Urine Opiates Screen Pos Urine Methadone Screen Neg Urine Barbiturates Neg Urine Phencyclidine Screen Neg Urine Amphetamine/Methamphetamine Neg Urine Benzodiazepines Screen Neg Urine Cocaine Screen Neg Urine Cannabinoids Screen Neg Urine Ethyl Alcohol Neg White Blood Count 14.0 x10^3/uL Red Blood Count 5.39 x10^6/uL Hemoglobin 13.3 g/dL Hematocrit 40.5 % Mean Corpuscular Volume 75 fL Mean Corpuscular Hemoglobin 25 pg Mean Corpuscular Hemoglobin Concent 33 g/dL Red Cell Distribution Width 15.5 % Platelet Count 224 x10^3/uL Neutrophils (%) (Auto) 82 % Lymphocytes (%) (Auto) 8 % Monocytes (%) (Auto) 6 % Eosinophils (%) (Auto) 4 % Basophils (%) (Auto) 1 % Neutrophils # (Auto) 11.4 x10^3/uL Lymphocytes # (Auto) 1.1 x10^3/uL Monocytes # (Auto) 0.8 x10^3/uL Eosinophils # (Auto) 0.5 x10^3/uL Basophils # (Auto) 0.2 x10^3/uL Sodium Level 133 mmol/L Potassium Level 3.8 mmol/L Chloride Level 100 mmol/L Carbon Dioxide Level 22 mmol/L Anion Gap 11 Blood Urea Nitrogen 7 mg/dL Creatinine 0.5 mg/dL Estimated GFR (Cockcroft-Gault) 179.8 BUN/Creatinine Ratio 14 Glucose Level 153 mg/dL Calcium Level 8.3 mg/dL Total Bilirubin 0.6 mg/dL Aspartate Amino Transf (AST/SGOT) 72 U/L Alanine Aminotransferase (ALT/SGPT) 45 U/L Alkaline Phosphatase 147 U/L Total Protein 7.0 g/dL Albumin 3.3 g/dL Albumin/Globulin Ratio 0.9 Test 11/20/21 10:51 Glucose (Fingerstick) 137 mg/dL Imaging: Abd US FINDINGS: Pancreas: Grossly unremarkable on limited evaluation. - Portions obscured: Tail Liver: Enlarged - Echotexture: Normal, homogeneous. - Echogenicity: Increased, compatible steatosis - Surface contour: Smooth - Lesions: None. Biliary: No intrahepatic biliary duct dilation. - CBD: 4 mm. - Gallbladder: Normal caliber - Contents: No cholelithiasis - Wall: Normal - Other: No pericholecystic fluid. Right Kidney: Measures 14.0 cm in length. No hydronephrosis or focal lesion. Ascites: None. Aorta/IVC: Partially visualized aorta and IVC unremarkable. IMPRESSION: Hepatomegaly with steatosis. PE: GEN: NAD LUNGS: CTAB HEART: RRR ABD: NABS, S/ND/NT NEURO/PSYCH: A & O 3 A/P: Epigastric pain - resolved - similar to past pancreatitis; however, normal pancreas on CT, normal GB on US, normal lipase HTN, elevated troponin, hypertryglyceridemia - plans for echo, outpt ischemic eval and outpt MADELYN workup Leukocytosis - bit worse today Microcytosis (normal iron profile) Mildly elevated AST and Alk Phos, hepatomegaly, hepatic steatosis H/o alcohol overuse, non-compliance -- Advance diet, DC per primary. Encouraged compliance w/ meds, avoidance of alcohol. Follow-up for screening colonoscopy, consider EGD as well if pain recurs, would also follow LFTs as outpt - will check Hepatitis panel before DC for complet eness considering tattoos. Justicifation of Admission Dx: Justifications for Admission: Justification of Admission Dx: N/A ANIRUDH SOUZA Nov 20, 2021 11:12
[2021-11-20] MEDS ORDERED: PANT40TA77 PO (12:11)
[2021-11-20] MEDS ORDERED: LOSA-73 PO (12:11)
[2021-11-20] MEDS ORDERED: AMLO-187 PO (12:11)
[2021-11-20] MEDS ORDERED: FURO-69 PO (12:11)
[2021-11-20] MEDS ORDERED: FENO134C22 PO (12:11)
--- NOTE | 2021-11-20 14:38 | DS ---
DATE OF DISCHARGE: 11/20/2021 ADMITTING DIAGNOSIS: Abdominal pain, elevated troponin, alcohol abuse, hypertensive urgency, hepatic steatosis. DISCHARGE DIAGNOSES: 1. Resolving elevated troponin, suspect secondary to his hypertension and demand ischemia. 2. Alcohol issues. 3. Hepatic steatosis. CONSULTS: GI and Cardiology. PROCEDURES: None. HOSPITAL COURSE: The patient is a pleasant middle-aged male who presented with some abdominal pain and chest pain. He was noted to have an elevated troponin and hypertensive urgency. He also drinks too much. He was admitted. We treated him with a Cardene drip and changed him over to p.o. antihypertensives. The above consults were obtained. Today, I saw him and examined him. He is at his baseline and wants to go home. Once his pressures are less than 160, I plan to discharge if okay with consultants. DISPOSITION: Home. ACTIVITY: As tolerated. DIET: Cardiac. MEDICATIONS: Amlodipine 10 a day, fenofibrate 134 a day, Lasix 20 a day, losartan 50 a day, Protonix 40 a day, atorvastatin 40 a day, insulin. TOTAL TIME: 34 minutes. MELINDA/CAIN DR: Coy TID: [id number]
--- NOTE | 2021-11-20 14:51 | NUR ---
See Discharge Summary. Pt a/o-gait steady. No CP/sob. Dc'd SLx2. pt has his belonging. Home in private care with SO.
[2021-11-21] MEDS ORDERED: LOSARTAN POTASSIUM 50 MG TABLET. PO SCH (09:00)
== END 2021-11-20 13:15 | disposition home or self-care (01) | DRG 305 ==
LOC: ER 23:48 → 1 WEST ICU 11-19 03:15
PROVIDERS: ADMIT Student in an Organized Health Care Education/Training Program; ATTEND Student in an Organized Health Care Education/Training Program
DX: I16.0 Hypertensive urgency (principal); E11.9 Type 2 diabetes mellitus without complications; Z68.34 Body mass index [BMI] 34.0-34.9, adult; E78.00 Pure hypercholesterolemia, unspecified; E78.1 Pure hyperglyceridemia; R10.13 Epigastric pain; E78.5 Hyperlipidemia, unspecified; F10.10 Alcohol abuse, uncomplicated; G47.33 Obstructive sleep apnea (adult) (pediatric); I10 Essential (primary) hypertension; K76.0 Fatty (change of) liver, not elsewhere classified; E66.9 Obesity, unspecified; R16.0 Hepatomegaly, not elsewhere classified; D72.829 Elevated white blood cell count, unspecified; Z82.49 Family history of ischemic heart disease and other diseases of the circulatory system; Z83.3 Family history of diabetes mellitus; Z91.14 Patient's other noncompliance with medication regimen
CPT/HCPCS: 36415; 71275; 74177; 76705; 80053; 80061; 80307; 81001; 82962; 83540; 83550; 83690; 83880; 84478; 84484; 85025; 86705; 86709; 86803; 87340; 93005; 93306; 96361; 96374; 96375; G0480; J0360; J1650; J2270; J2405; J3010; J3490; J7030; J7050; Q9967; 99291-25; C8929; G0378

== ENCOUNTER 2021-11-30 12:01 | Emergency (ER) | payer OTHER ==
[~2021-11-30] VITALS: Ht 177.8 cm; Wt 118.0 kg
[~2021-11-30 12:01] MED LIST changes: +AMLO-187 PO; +ATOR40TA59 PO; +FURO-69 PO; +LOSA25TA PO; +PANT40TA77 PO
[2021-11-30 12:45] VITALS: BP 144/79
[2021-11-30] MEDS ORDERED: LIDOCAINE 2% Multi-Dose 20 ML VIAL. IJ ONE (13:00)
[2021-11-30] MEDS ORDERED: BACITRACIN TOPICAL OINT PACKET. TP ONE (13:45)
--- NOTE | 2021-11-30 13:52 | PHYS DOC ---
Past Medical History Past Medical History: Diabetes-Type II, High Cholesterol, Hypertension Past Surgical History: No Surgical History Smoking Status: Never Smoker Alcohol Use: None Drug Use: None General Adult EDM: Chief Complaint: LACERATION/AVULSION HPI: HPI: Patient is a 46 year old male with past medical history that includes diabetes, hyperlipidemia, hypertension who presents with a laceration to right digit 2. Patient states he was moving sheet-metal in his home without wearing gloves when he sustained a laceration. He reports he was trying to force the sheet-metal into a spot "should not have been." He states the finger is numb, but he is able to move it. Bleeding was controlled prior to arrival in the emergency department. He denies any other trauma or injury. Patient has no other complaints at this time Review of Systems: Review of Systems: ROS negative or noncontributory except as mentioned in HPI. Heart Score: C/O Chest Pain: No Current Medications: Current Medications Medications (Trade) Dose Ordered Sig/Aissatou Start Time Stop Time Status Last Admin Dose Admin Lidocaine HCl (Lidocaine 2% 20ml Vial) 20 ml 1X ONCE 11/30/21 13:00 11/30/21 13:05 DC 11/30/21 13:14 20 ML Allergies: Allergies: Allergies Coded Allergies Type Severity Reaction Last Updated Verified No Known Drug Allergies 03/07/20 No Physical Exam: PE: Constitutional: Obese, no acute distress, non-toxic appearance, slightly disheveled. HENT: Normocephalic, atraumatic, bilateral external ears normal, nose normal. Eyes: EOMI, conjunctiva normal, no discharge. Neck: Normal range of motion, no stridor. Skin: Approximately 2.5 cm L-shaped laceration noted to the lateral aspect of digit 2 between the PIP and DIP joints without active bleeding. Skin otherwise warm, dry, no erythema, no rash. Extremities: No tenderness, no cyanosis, no clubbing, active and passive ROM intact, no edema, radial pulses 2+ and symmetrical. Neurologic: Alert and oriented x4, normal motor function, normal sensory function, no focal deficits noted. Current Patient Data: Vital Signs: Vital Signs Date Time Temp Pulse Resp B/P (MAP) Pulse Ox O2 Delivery O2 Flow Rate FiO2 11/30/21 12:45 98.1 78 16 144/79 (100) 94 Room Air 98.1 Course & Med Decision Making: Course & Med Decision Making Pertinent Labs and Imaging studies reviewed. (See chart for details) Patient is a 46-year-old male who presents with a laceration to his right index finger. Laceration does not extend to tendon or bone beneath. Patient tolerated closure very well. Wound care instructions and return precautions were provided. Patient understands and is agreeable to discharge plan. Dragon Disclaimer: Dragon Disclaimer: This electronic medical record was generated, in whole or in part, using a voice recognition dictation system. Laceration Repair Lac Repair Indication: Right index finger lack Procedure: The patient was placed in the appropriate position and anesthesia was a right digit to block using 2% lidocaine plain. Used an additional 0.5 cc injected directly to the wound. The area was then thoroughly irrigated with sterile saline and cleansed with chlorhexidine. The laceration was closed with 4 simple interrupted 4-0 nylon sutures. The wound area was then dressed with bacitracin and nonadhesive gauze dressing. Total repaired wound length: Approximately 2.5 cm. Other Items: The patient tolerated the procedure well. Complications: No complications. Departure Departure Impression: Primary Impression: Laceration of index finger of right hand without complication Disposition: 01 HOME / SELF CARE / HOMELESS Condition: IMPROVED Referrals: NO PCP (PCP) Patient Instructions: Sutured Wound Care, [id number] Additional Instructions: EMERGENCY DEPARTMENT GENERAL DISCHARGE INSTRUCTIONS Thank you for coming to [facility] Emergency Department (ED) today and trusting us with you care. We trust that you had a positive experience in our Emergency Department. If you wish to speak to the department management, you may call the director at . YOUR FOLLOW UP INSTRUCTIONS ARE FOLLOWS: 1. Follow up with your primary care doctor. If you do not have a primary doctor, please ask for a resource list of physicians or clinics that may be able to assist you with follow up care. 2. The emergency provider has interpreted your imaging studies, if any were ordered. The radiology drug discovery informatics specialist also reviewed them. If there is a change in the findings, you will be notified in 48 hours when at all possible. 3. If a lab test or culture has been done, your results will be reviewed and you will be notified if you need a change in treatment. 4. Follow instructions verbalized to you and refer to the printouts if needed. ADDITIONAL INSTRUCTIONS AND INFORMATION: 1. Your care today has been supervised by a physician who is specially trained in emergency care. Many problems require more than one evaluation for a complete diagnosis and treatment. We recommend that you schedule your follow up appointment as recommended to ensure complete treatment of you illness or injury . If you are unable to obtain follow up care and continue to have a problem, or if your condition worsens, we recommend that you return to the ED. 2. We are not able to safely determine your condition over the phone nor are we able to give sound medical advice over the phone. For these safety reasons, if you call for medical advice we will ask you to come to the ED for further e valuation. 3. If you have any questions regarding these discharge instructions please call the ED at . SAFETY INFORMATION: In the interest of safety, wellness, and injury prevention; we encourage you to wear your seat belt, if you smoke; quite smoking, and we encourage family to use a protective helmet for bicycling and other sporting events that present an increased risk for head injury. IF YOUR SYMPTOMS WORSEN OR NEW SYMPTOMS DEVELOP, OR YOU HAVE CONCERNS ABOUT YOUR CONDITION; OR IF YOUR CONDITION WORSENS WHILE YOU ARE WAITING FOR YOUR FOLLOW UP APPOINTMENT; EITHER CONTACT YOUR PRIMARY CARE DOCTOR, THE PHYSICIAN WHOSE NAME AND NUMBER YOU WERE GIVEN, OR RETURN TO THE ED IMMEDIATELY. SHARTAH VILLALOBOS Nov 30, 2021 13:52
== END 2021-11-30 14:14 | disposition home or self-care (01) ==
LOC: ER 12:01
DX: S61.210A Laceration without foreign body of right index finger without damage to nail, initial encounter (principal); E11.9 Type 2 diabetes mellitus without complications; E78.00 Pure hypercholesterolemia, unspecified; I10 Essential (primary) hypertension; Y28.8XXA Contact with other sharp object, undetermined intent, initial encounter; Y93.89 Activity, other specified; Y92.89 Other specified places as the place of occurrence of the external cause; Y99.8 Other external cause status
CPT/HCPCS: 12001; 99282